=== PATIENT | female | born 1960 | race Asian ===

== ENCOUNTER 2018-11-12 10:41 | Day surgery (SDC) | payer OTHER ==
[~2018-11-12 10:41] MED LIST: Buffered Lidocaine 1% SYRIN* 1 ML/SYRINGE INTRADERM ONE; Dexamethasone TAB* 4 MG PO ONE; DiMENhydriNATE IV* 50 MG/ML VIAL IV PUSH PRN; Famotidine IV* 10 MG/ML 2 ML (20 mg) IV ONE; Lactated Ringers 1000 ML Bag* 1,000 ML IV SCH; Morphine 4 MG/ML VIAL (1 ml) 4 MG/ML VIAL IV PRN; Naloxone* 0.4 MG/ML 1 ML VIAL IV PRN; Ondansetron TAB* 4 MG PO ONE; PROCHLORPERAZINE INJ 5 MG/ML 2 ML VIAL IV PRN; Scopolamine 1.5 mg* PATCH TRANSDERM ONE; fentaNYL* 50 MCG/ML 2 ML VIAL (100 MCG VIAL) IV PRN; oxyCODONE/Acetamin 5/325 MG* TAB PO PRN
[2018-11-12] MEDS ORDERED: Dexamethasone TAB* 4 MG ONE (10:54)
[2018-11-12] MEDS ORDERED: Ondansetron ODT TAB* 4 MG ONE (10:54)
[2018-11-12] MEDS ORDERED: Famotidine IV* 10 MG/ML 2 ML (20 mg) ONE (10:55)
[2018-11-12] MEDS ORDERED: Buffered Lidocaine 1% SYRIN* 1 ML/SYRINGE INTRADERM ONE (10:55)
[2018-11-12] MEDS ORDERED: Scopolamine 1.5 mg* PATCH ONE (10:55)
[2018-11-12] MEDS ORDERED: fentaNYL* 50 MCG/ML 2 ML VIAL (100 MCG VIAL) ONE (11:05)
[2018-11-12] MEDS ORDERED: KETAMINE HCL* 50 MG/ML 10 ML VIAL ONE (11:05)
[2018-11-12] MEDS ORDERED: Midazolam* 1 MG/ML 5 ML VIAL (5 MG) ONE (11:06)
[2018-11-12] MEDS ORDERED: Gelfoam 12-7 ADSORBABL SPONGE* 1 EA SPONGE ONE (12:08)
[2018-11-12] MEDS ORDERED: Oxymetazoline 0.05% NASAL SPR* 15 ML BTL ONE (12:09)
[2018-11-12] MEDS ORDERED: Lidocaine 2% EPI 1:200000 MPF*10-20 ML VIAL ONE (12:09)
[2018-11-12] MEDS ORDERED: Triamcinolone Acetonide* 40 MG/ML 1 ML VIAL ONE (12:09)
[2018-11-12] MEDS ORDERED: Propofol* 10 MG/ML 20 ML BTL ONE (12:27)
[2018-11-12] MEDS ORDERED: Lidocaine 2% PF * 5 ML VIAL ONE (12:28)
[2018-11-12] MEDS ORDERED: hydrALAZINE IV* 20 MG/ML VIAL ONE ×2 (12:28→13:40)
[2018-11-12] MEDS ORDERED: PROCHLORPERAZINE INJ 5 MG/ML 2 ML VIAL ONE (12:30)
[2018-11-12] MEDS ORDERED: Metoprolol Tartrate IV* 1 MG/ML 5 ML VIAL ONE (13:40)
[2018-11-12 15:02] VITALS: BP 126/81
--- NOTE | 2018-11-12 16:33 | OP ---
DATE OF OPERATION: 11/12/18 - [facility] DATE OF : 60 SURGEON: Jerome Romero MD PRE-OP DIAGNOSES: 1. Chronic recurring sinusitis. 2. Nasal dyspnea. POST-OP DIAGNOSES: 1. Chronic recurring sinusitis. 2. Nasal dyspnea. OPERATIVE PROCEDURE: Bilateral videoendoscopic maxillary antrostomy, bilateral anterior ethmoidectomy. BRIEF HISTORY: This is a 58-year-old female with longstanding history of chronic sinus symptoms, previously apparent with sinus surgery, but she fairly had atelectatic sinuses and the CT scan shows quite significant adhesive changes. DESCRIPTION OF PROCEDURE: The patient was taken to the operating room, general anesthetic was given, the patient was intubated with LMA. Nose was decongested with Afrin placed pledgets. 2% lidocaine with epinephrine was infiltrated in the turbinate region on both sides, the uncinate area on both sides, and the ethmoidal bulla area on both sides. We turned our attention to the left side. The previously examined area showed that there had been previous surgery done, but there was significant synechia between the residual uncinate and the antral opening. The uncinate was carefully peeled off of the inferior orbital wall and fontanelle and then the antrum was entered and enlarged. Again, it was quite stenotic. Then, we turned our attention to the ethmoid resecting out the residual bulla and coursing laterally towards the lamina papyracea posteriorly towards the skull base and ground lamella and superior into the nasal frontal duct area, very sclerotic bone. The area was then packed with Gelfilm and Gelfoam. We turned our attention to the right side. Here, the antrostomy was closed because of adhesive changes of the residual either scar tissue or uncinate bone. This was again resected out carefully and the antrum was enlarged. The ethmoidal bulla was extremely stenotic and firm and carefully entered resecting some of the bulla cells towards the lamina papyracea and as much as I could safely into the nasal frontal duct area. After this was done, the area was packed with Gelfilm and Gelfoam. The patient was then awakened and sent to the recovery room in stable condition. Instrument and sponge counts were correct. Blood loss was minimal. [id number]/[facility] #: [id number] [facility]
[2018-11-15] MEDS ORDERED: Scopolamine PATCH Remove* 1 NOTE MISC PATCH OFF ONE (06:00)
== END 2018-11-12 15:05 | disposition home or self-care (01) ==
LOC: OR 10:41
PROVIDERS: ATTEND Otolaryngology
DX: J32.8 Other chronic sinusitis (principal); R51 Headache; J34.3 Hypertrophy of nasal turbinates
CPT/HCPCS: 88305; 88311; A9270-GY; J0360; J0780; J2250; J2704; J3010; J3301; J3490; J8540

== ENCOUNTER 2019-02-20 11:04 | Day surgery (SDC) | payer OTHER ==
--- NOTE | 2019-02-19 12:26 | HP ---
AMENDED REPORT NOW INCLUDES DESIGNATED COSIGNER PREOPERATIVE HISTORY AND PHYSICAL: DATE OF SURGERY/ADMISSION: 02/20/19 DATE OF OFFICE VISIT/ENCOUNTER: 02/18/19 ATTENDING SURGEON: Yennifer Herrera MD.* (DICTATED BY HAYDEE OSPINA) PROCEDURE: Left long finger excision of mass. HISTORY OF PRESENT ILLNESS: This is a 58-year-old female who complains of a lump on the dorsal aspect of her left middle finger. It has been bothering her for several weeks. She did not recall any specific injury. It hurts when she grasps on to things. She does not believe she has any foreign body in her finger. However, she is concerned about the lump and it is bothersome enough to her that she would like to have it removed. PAST MEDICAL HISTORY: 1. Chronic back/neck pain. 2. Questionable history of rheumatoid arthritis. 3. Rheumatic fever as a child. PAST SURGICAL HISTORY: 1. Back surgery 10 years ago. 2. Neck surgery 9 years ago. 3. Carpal tunnel release on the right x2 and on the left x1. 4. Appendectomy. 5. Hysterectomy. 6. Sinus surgery. CURRENT MEDICATIONS: 1. Advil p.r.n. 2. Fluticasone propionate 50 mcg/act. 3. Gabapentin 300 mg daily. 4. Tizanidine HCl 4 mg daily. 5. Tylenol p.r.n. ALLERGIES: No known drug allergies. FAMILY MEDICAL HISTORY: Rheumatic arthritis, heart disease, hypertension. SOCIAL HISTORY: The patient lives at home with her father. She is not currently working. She denies tobacco use and recreational drug use. She drinks alcohol on occasion. REVIEW OF SYSTEMS: Positive for constipation, chronic back/neck pain, weakness , fatigue, anxiety/depression. Otherwise negative for general, cephalic, cardiovascular, respiratory, GI, , musculoskeletal, integumentary, endocrine, hematologic and neurologic symptoms. Infectious Disease: Negative for MRSA, hepatitis C, HIV. PHYSICAL EXAMINATION GENERAL: Well-developed, well-nourished, 58-year-old female, in no acute distress. VITAL SIGNS: Height 5 feet 2-3/4 inches, weight 115 pounds. Pulse rate 64, blood pressure 124/84. HEENT: Normocephalic, atraumatic. Pupils are equal, round, and reactive to light and accommodation. Extraocular movements are intact. Throat is clear. NECK: Supple. No palpable lymph nodes. PULMONARY: Lungs are clear to auscultation bilaterally. No wheezes, rales, or rhonchi. CARDIOVASCULAR: Regular rate and rhythm, S1, S2. No murmurs, rubs, or gallops. No edema. ABDOMEN: Positive bowel sounds, soft, nontender. NEUROLOGIC: Alert and oriented x3. Cranial nerves II through XII are intact. Sensation is intact to light touch. MUSCULOSKELETAL: On exam of her left hand, there is a cystic mass on the dorsal aspect of her left middle finger overlying the middle phalanx. It is tender to palpation. It measures about 1 x 0.5 cm. SKIN: Intact. There is no erythema. There is a negative Tinel's over the lump. She has no restrictions of motion in the finger. DIAGNOSTIC STUDIES/LAB DATA: Imaging studies: X-rays; AP, lateral, and oblique of the left middle finger appeared normal. IMPRESSION: Left middle finger soft tissue mass. PLAN: The patient is scheduled to undergo left long finger excision of mass with Dr. Herrera on 02/20/19. She will return to the office 10 days postop for followup and suture removal. A prescription for Ultracet was e-scribed to the patient's pharmacy for postoperative pain management. HAYDEE OSPINA [id number]/[facility] #: [id number] MTDD
[~2019-02-20 11:04] MED LIST changes: -Dexamethasone TAB* 4 MG PO ONE; -DiMENhydriNATE IV* 50 MG/ML VIAL IV PUSH PRN; -Famotidine IV* 10 MG/ML 2 ML (20 mg) IV ONE; +Lidocaine 1% INJ* 10 MG/ML 30 ML SDV ONE; -Morphine 4 MG/ML VIAL (1 ml) 4 MG/ML VIAL IV PRN; -Naloxone* 0.4 MG/ML 1 ML VIAL IV PRN; -Ondansetron TAB* 4 MG PO ONE; -PROCHLORPERAZINE INJ 5 MG/ML 2 ML VIAL IV PRN; -Scopolamine 1.5 mg* PATCH TRANSDERM ONE; -fentaNYL* 50 MCG/ML 2 ML VIAL (100 MCG VIAL) IV PRN; -oxyCODONE/Acetamin 5/325 MG* TAB PO PRN
[2019-02-20] MEDS ORDERED: Famotidine IV* 10 MG/ML 2 ML (20 mg) ONE (11:10)
[2019-02-20] MEDS ORDERED: Midazolam* 1 MG/ML 5 ML VIAL (5 MG) ONE (12:14)
[2019-02-20] MEDS ORDERED: Lidocaine 1% INJ* 10 MG/ML 30 ML SDV ONE (13:01)
[2019-02-20] MEDS ORDERED: Ketorolac INJ* 30 MG/ML 1 ML VIAL ONE (13:32)
[2019-02-20] MEDS ORDERED: Propofol* 10 MG/ML 20 ML BTL ONE (13:32)
[2019-02-20] MEDS ORDERED: Ondansetron INJ* 2 MG/ML VIAL ONE (13:32)
[2019-02-20] MEDS ORDERED: Lidocaine 2% PF * 5 ML VIAL ONE (13:32)
[2019-02-20] MEDS ORDERED: Ondansetron INJ* 2 MG/ML VIAL IV PRN (13:45)
[2019-02-20] MEDS ORDERED: Acetaminophen TAB* 325 MG PO PRN (13:45)
[2019-02-20 14:26] VITALS: BP 121/79
--- NOTE | 2019-02-20 15:08 | OP ---
DATE OF OPERATION: 02/20/19 [facility] DATE OF : 60 SURGEON: Yennifer Herrera MD. PODIATRIC PHYSICIAN: HAYDEE Sanchez. ANESTHESIA: Local MAC. PRE-OP DIAGNOSIS: Left long finger mass. POST-OP DIAGNOSIS: Left long finger mass. OPERATIVE PROCEDURE: Removal of left long finger mass. ESTIMATED BLOOD LOSS: Zero. TOURNIQUET TIME: Approximately 10 minutes. INDICATION FOR PROCEDURE: Lorenzo Vale is a 58-year-old woman who has a painful mass on the dorsal aspect of her left long finger. She presents for removal. DESCRIPTION OF PROCEDURE: The patient was brought to the operating room, was given a sedation anesthetic and a digital block with 10 cc of 1% plain lidocaine. The skin of her left hand and forearm was prepped and draped in the usual sterile fashion. A Tourni-Cot was placed on the left long finger and then a longitudinal incision was made centered over the mass, dissected bluntly through subcutaneous tissue. The mass appeared to a ganglion cyst emanating from the extensor tendon. It was removed in its entirety and sent for pathology. The wound was irrigated and the skin edges were reapproximated with 4-0 nylon suture. The wound was dressed with Xeroform, 4x4, Kerlix, and Coban. The patient tolerated the procedure well and was brought to the recovery room in good condition. [id number]/[facility] #: [id number] MTDD
== END 2019-02-20 14:24 | disposition home or self-care (01) ==
LOC: OREAST 11:04
PROVIDERS: ATTEND Orthopaedic Surgery
DX: M67.442 Ganglion, left hand (principal); M54.2 Cervicalgia; M54.9 Dorsalgia, unspecified; F41.9 Anxiety disorder, unspecified
CPT/HCPCS: 88304; J1885; J2250; J2405; J2704

== ENCOUNTER 2019-04-07 01:34 | Emergency (ER) | payer OTHER ==
--- OUTSIDE RECORDS SUMMARY | 2019-04-07 01:41 | XMS REPORT | Continuity of Care Document ---
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 Onset: 02/06/2016 Low back pain Brenda Chapman M.D. Onset: 02/06/2016 Social History Type Date Description Comments Sex Unknown ETOH Use Currently consumes alcohol 2/week Tobacco Use Start: Unknown Patient has never smoked Smoking Status Reviewed: 02/25/19 Patient has never smoked Exercise Type/Frequency Exercises sporadically Allergies, Adverse Reactions, Alerts Description No Known Drug Allergies Medications Active Medications SIG Qnty Indications Ordering Provider Date Tramadol 1 tab by mouth 15tabs Yennifer Herrera, 02/19/2019 Hydrochloride/Acetami every 4-6 hours M.D. nophen as needed pain 37.5-325mg Tablets Gabapentin Cannariato, 300mg Lashell Moody MD Capsules Tizanidine HCL Cannariato, 4mg Lashell Moody MD Tablets Fluticasone Cannariato, Propionate Lashell Moody MD 50mcg/Act Suspension Tylenol Unknown Advil Unknown Immunizations Description No Information Available Vital Signs Date Vital Result Comment 02/25/2019 2:31pm Height 62 inches 5'2" Weight 115.00 lb Heart Rate 64 /min Body Temperature 99.2 F Pain Level 1 BMI (Body Mass Index) 21.0 kg/m2 02/18/2019 11:32am Height 62.75 inches 5'2.75" Weight 115.00 lb Heart Rate 64 /min BP Systolic 124 mmHg BP Diastolic 84 mmHg Pain Level 6 BMI (Body Mass Index) 20.5 kg/m2 Results Test Date Facility Test Result H/L Range Note Laboratory test 02/20/2019 [facility] Surgical SEE RESULT 1 , [address] [place] [address] [phone] Laboratory test 11/12/2018 [facility] Surgical SEE RESULT [address] [place] [address] [phone] 1 [id number] 2 SEE RESULT BELOW Name: LORENZO DURHAM : [address]: Yennifer Herrera MD Acct: [id number] Unit: [id number] AGE: 58 Location: [facility] Re02/20/19 SEX: F Status: DESHAWN JUAREZ SPEC: [id number] CLOTILDE: 02/20/[address] [facility] [address]: Yennifer Herrera MD REQ: [id number] RECD: 02/20/19 STATUS: SOUT _ ORDERED: LEVEL 3 COMMENTS: [id number] FINAL DIAGNOSIS Left middle finger, excision: -- Ganglion cyst. PRE-OPERATIVE DIAGNOSIS Mass left middle finger GROSS DESCRIPTION The specimen is received in formalin labeled, Mass Left Middle Finger, and consists of a 0.9 x 0.6 x 0.2 cm betancourt-pond irregular rubbery fibrous tissue fragment with scant adherent yellow fat. The cut surface is cystic. The specimen is serially sectioned and entirely submitted in one cassette. Signed by and Reported on: Sasha Maya MD 02/24/19 1257 END OF REPORT DEPARTMENT OF PATHOLOGY, [address] [place] [address] Jered Piper M.D. Director [facility] # [id number] 3 SEE RESULT BELOW Name: DWAYNE DURHAM : [address]: Yuriy Romero MD Acct: [id number] Unit: [id number] AGE: 58 Location: OR Re11/12/18 SEX: F Status: DEP SDC SPEC: [id number] CLOTILDE: 11/12/18- SUBM DR: Yuriy Romero MD REQ: [id number] RECD: 11/12/18 STATUS: SOUT _ ORDERED: , LEVEL 4/ FINAL DIAGNOSIS 1. Left sinus contents, curettage: -- Chronic sinusitis. 2. Right sinus contents, curettage: -- Chronic sinusitis. PRE-OPERATIVE DIAGNOSIS Chronic sinusitis GROSS DESCRIPTION 1. The specimen is received in formalin labeled, Left Sinus Contents, and consists of a 2.1 x 2.0 x 0.4 cm aggregate of betancourt-white irregular soft tissue fragments admixed with a small amount of bone and scant red-brown blood clot. Entirely submitted, one cassette following decalcification. 2. The specimen is received in formalin labeled, Right Sinus Contents, and consists of a 1.3 x 1.0 x 0.4 cm aggregate of betancourt-pond irregular soft tissue fragments admixed with scant bone and red-brown blood clot. Entirely submitted, one cassette following decalcification. Signed by and Reported on: Sasha Maya MD 11/14/18 1529 END OF REPORT DEPARTMENT OF PATHOLOGY, [address] [place] [address] Jered Piper M.D. Director [facility] # [id number] Procedures Description No Information Available Medical Devices Description No Information Available Encounters Type Date Location Provider Dx Diagnosis Office Visit 02/18/2019 [facility] Yennifer Herrera, G56.03 Carpal tunnel 11:[facility] Schultz syndrome, bilateral upper limbs R22.32 Localized swelling, mass and lump, left upper limb Assessments Date Code Description Provider 02/18/2019 G56.03 Carpal tunnel syndrome, bilateral upper limbs Yennifer Herrera M.D. 02/18/2019 R22.32 Localized swelling, mass and lump, left upper Yennifer Herrera M.D. limb Plan of Treatment Future Appointment(s):03/04/2019 1:00 pm - Yennifer Herrera M.D. at [facility] Functional Status Description No Information Available Mental Status Description No Information Available Referrals Description No Information Available
--- OUTSIDE RECORDS SUMMARY | 2019-04-07 01:41 | XMS REPORT | Continuity of Care Document ---
:1960 External Reference #:[id number] Author Name Socrates Wilkins DO, MPH Address [address] [place] [address], [address] [place] [address] Care Team Providers Name Role Phone Lashell Colon J, MD - Family Care Team Information Brand Representative [phone] Medicine Problems Active Problems Provider Date Radiculopathy, cervical region WilkinsCarol cooperph, DO, MPH Onset: 03/26/2019 Lumbar spine ankylosis Wilkins, Socrates, DO, MPH Onset: 03/26/2019 Cervical spine ankylosis Wilkins, Socrates, DO, MPH Onset: 03/26/2019 Dietary management surveillance WilkinsCarol cooperph, DO, MPH Onset: 03/26/2019 Counseling WilkinsCarol cooperph, DO, MPH Onset: 03/26/2019 Degenerative joint disease involving multiple Wilkins, Socrates, DO, MPH Onset: joints Long-term current use of opiate analgesic Wilkins, Socrates, DO, MPH Onset: 2018 drug Lumbar radiculopathy Wilkins, Socrates, DO, MPH Onset: 03/26/2019 Low back pain Wilkins, Socrates, DO, MPH Onset: 03/26/2019 Neck pain Wilkins, Socrates, DO, MPH Onset: 03/26/2019 Chronic postoperative pain Wilkins, Socrates, DO, MPH Onset: 03/26/2019 Headache Wilkins, Socrates, DO, MPH Onset: 03/26/2019 Asthma without status asthmaticus Wilkins, Socrates, DO, MPH Onset: 03/26/2019 Gastroesophageal reflux disease Wilkins, Socrates, DO, MPH Onset: 03/26/2019 Rheumatoid arthritis Wilkins, Socrates, DO, MPH Onset: 03/26/2019 Social History Type Date Description Comments Sex Unknown ETOH Use 2 Beer a Week Tobacco Use Start: Unknown End: Unknown Patient is a former smoker Recreational Drug Use Denies Drug Use Smoking Status Reviewed: 03/26/19 Patient is a former smoker Allergies, Adverse Reactions, Alerts Active Allergies Reaction Severity Comments Date Shellfish-Derived Products Anaphylaxis 03/26/2019 Medications Active Medications SIG Qnty Indications Ordering Provider Date Oxycodone HCL si by mouth 30tabs Socrates Wilkins, DO, 03/26/2019 5mg every 8 to 12 MPH Tablets hours as directed chronic pain patient Advil PM 2 by mouth at Unknown 200-25mg night Capsules Tylenol 8 Hour Unknown Arthritis Pain 650mg Tablets ER Fluticasone Unknown Propionate 50mcg/Act Suspension Gabapentin si by mouth Unknown 300mg twice a day as Capsules directed Tizanidine HCL si by mouth Unknown 4mg daily as directed Tablets Immunizations Description No Information Available Vital Signs Date Vital Result Comment 03/26/2019 2:05pm BP Systolic 130 mmHg BP Diastolic 82 mmHg Heart Rate 84 /min Respiratory Rate 20 /min Height 62 inches 5'2" Weight 117.00 lb Pain Level 7 Pain at this time. 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, lumbar region Wilkins, Socrates, DO, MPH 03/26/2019 M54.16 Radiculopathy, lumbar region Wilkins, Socrates, DO, MPH 03/26/2019 M54.12 Radiculopathy, cervical region Wilkins, Socrates, DO, MPH 03/26/2019 K21.9 Gastro-esophageal reflux disease without Socrates Wilkins DO MPH esophagitis 03/26/2019 J45.998 Other asthma Socrates Wilkins DO MPH 03/26/2019 R51 Headache Socrates Wilkins DO MPH 03/26/2019 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 Symptoms and complaints discussed and reviewed today. No significant changes in physical findings. Continue current medical pain management. Chronic. Symptoms and complaints discussed and reviewed today. No significant changes in physical findings. Continue current medical pain management.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, cervical regionComments:Chronic Intractable Pain. Symptoms and complaints discussed and reviewed today. Begin trial of adequate and appropriate Opioid Pain Management as well as non-opioid treatment options - New Medications listed below.M54.2 CervicalgiaComments: Chronic Intractable Pain. Symptoms and complaints discussed and reviewed today. Begin trial of adequate and appropriate Opioid Pain Management as well as non- opioid treatment options - New Medications listed below.M54.5 Low back painComments:Chronic Intractable Pain. Symptoms and complaints discussed and reviewed today. Begin trial of adequate and appropriate Opioid Pain Management as well as non-opioid treatment options - New Medications listed below.M43.26 Fusion of spine, lumbar regionComments:Chronic Intractable Pain. Symptoms and complaints discussed and reviewed today. Begin trial of adequate and appropriate Opioid Pain Management as well as non-opioid treatment options - New Medications listed below.M54.16 Radiculopathy, lumbar regionComments: Chronic Intractable Pain. Symptoms and complaints discussed and reviewed today. Begin trial of adequate and appropriate Opioid Pain Management as well as non- opioid treatment options - New Medications listed below.M54.12 Radiculopathy, cervical regionComments:Chronic Intractable Pain. Symptoms and complaints discussed and reviewed today. Begin trial of adequate and appropriate Opioid Pain Management as well as non-opioid treatment options - New Medications listed below.K21.9 Gastro-esophageal reflux disease without esophagitisComments: Following as pertains to chronic pain medications particularly NSAIDS and Tylenol as well as any meds that effect the GI tract.J45.998 Other asthmaComments:Followed by PCP. Will follow as pertains to her pain management. Special care to protect respiratory drive. Will follow as pertains to pain management.R51 HeadacheComments:Chronic. Symptoms and complaints discussed and reviewed today. Patient is stable and comfortable with current medical therapy.Z79.891 [employer] customer service (current) use of opiate analgesicNew Labs: Urine Drug Screen, Ordered: 03/26/19Comments:Urine drug screen sample taken. Rapid Point of Care Cup was reviewed in office with patient. Will send out UDT Rapid to Quantitative lab for confirmation testing. Urine Drug Testing (UDT) was done today to monitor opiate use and to monitor possible use of illicit substances. I will discuss the results at the next appointment from the Quantitative lab.The following tests were ordered:6 AM, AMPH, MANNIE, JANELLE, BUP, CARIS, COCM, COT, ETG, FENT, MCSHSG, OPI, OXY, PCP, TAPEN, XTSY, ZOLP. A urine drug test (UDT) was ordered for this patient and collected on site today. Creatinine has been ordered as well for specimen validity, not for kidney function. Preliminary UDT results are not final and should not be used to determine patient care or plan of treatment. Initially a qualitative immunoassay screen will be done. Any inconsistent or positive findings will be further tested with a more comprehensive quantitative confirmation LCMS study. It is part of the treatment process of prescribing controlled substances and is considered standard of care.Z13.31 Encounter for screening for depressionComments:PHQ-9 Depression Screen administered today, results were Positive at this time. Followed by PCP. Will follow as pertains to their pain. Patient seems to be stable today. Reassurance and counseling. Patient seems to be stable today.Z71.89 Other specified counselingComments:New patient counseled in regards to office practice. They were educated about our answering services. What to do if they should have to visit the ER or have any adverse reactions to medications we prescribe. Patient understands that they have to fill their prescription at one pharmacy. If there is a change they must call us and let us know what new pharmacy they will be using. They understand and agree that they must present within 24 hours of a phone call for a random urine screen and a pill count. Patient understands that if the medication needs a prior authorization that it can take up to 72 hours to complete. Patient introduced to non - opioid pain management options.Z71.3 Dietary counseling and surveillanceComments:Regular, small, nutritious meals higher in protein encouraged spaced evenly throughout the day. Count calories. Keep a food log. Hydrate.AllNew Medication:Oxycodone HCL 5 mg - si by mouth every 8 to 12 hours as directed chronic pain patientComments:Chronic intractable pain - Begin trial of adequate and appropriate Opioid Pain Management - New Medications listed below; injection therapy, osteopathic manipulation, PT / modalities, and consults as needed to manage chronic pain.Non - opioid pain management discussed and options discussed.Side effects discussed; anticipatory guidance given. Patient clearly understand and agree with all medical treatments and suggestions. All medicines prescribed are adequate and appropriate for this patient's complaint of pain, medical history, physical, and personal goals.Goals of Treatment are to provide adequate and appropriate multidisciplinary medical pain management to increase/ maintain patient's quality of life and functionality while maintaining satisfactory side effect profile and minimizing shelter end-organ damage. Importance of regular nutrition throughout the day discussed.Activity as toleratedContinue with PCP Functional Status Description No Information Available Mental Status Description No Information Available Referrals Description No Information Available
--- OUTSIDE RECORDS SUMMARY | 2019-04-07 01:41 | XMS REPORT | Continuity of Care Document ---
:1960 External Reference #:[id number] Author Name Yennifer Herrera M.D. (transmitted by agent of provider Manuela Vela) Address [address] [place] [address] Care Team Providers Name Role Phone Lashell Colon MD - Care Team Information [employer] Techn[employer] Family Medicine Problems Active Problems Provider Date Neck pain Brenda Chapman M.D. Onset: 02/06/2016 Low back pain Brenda Chapman M.D. Onset: 02/06/2016 Social History Type Date Description Comments Sex Unknown ETOH Use Currently consumes alcohol 2/week Tobacco Use Start: Unknown Patient has never smoked Smoking Status Reviewed: 02/18/19 Patient has never smoked Exercise Type/Frequency Exercises sporadically Allergies, Adverse Reactions, Alerts Description No Known Drug Allergies Medications Active Medications SIG Qnty Indications Ordering Provider Date Gabapentin Lashell Colon 300mg Capsules MD [place] Tizanidine HCL Lashell Colon 4mg Tablets MD [place] Fluticasone Propionate Susannahariaevi, Lashell 50mcg/Act MD [place] Suspension Tylenol Unknown Advil Unknown Immunizations Description No Information Available Vital Signs Date Vital Result Comment 02/18/2019 11:32am Height 62.75 inches 5'2.75" Weight 115.00 lb Heart Rate 64 /min BP Systolic 124 mmHg BP Diastolic 84 mmHg Pain Level 6 BMI (Body Mass Index) 20.5 kg/m2 03/08/2016 1:59pm Height 63 inches 5'3" Weight 140.12 lb Heart Rate 64 /min BP Systolic Sitting 126 mmHg BP Diastolic Sitting 76 mmHg Respiratory Rate 14 /min Body Temperature 97.2 F Pain Level 3 BMI (Body Mass Index) 24.8 kg/m2 Results Test Date Facility Test Result H/L Range Note Laboratory test 11/12/2018 [facility] Surgical SEE RESULT [address] [place] [address] [phone] 1 SEE RESULT BELOW Name: DWAYNE DURHAM : [address]: Yuriy Romero MD Acct: [id number] Unit: [id number] AGE: 58 Location: OR Re11/12/18 SEX: F Status: DESHAWN FRITZ SPEC: [id number] CLOTILDE: 11/12/18- SUBM DR: Yuriy Romero MD REQ: [id number] RECD: 11/12/183 STATUS: SOUT _ ORDERED: , LEVEL 4/2 FINAL DIAGNOSIS 1. Left sinus contents, curettage: [...] 1529 END OF REPORT DEPARTMENT OF PATHOLOGY, [address] [place] [address] Jered Piper M.D. Director [facility] # [id number] Procedures Description No Information Available Medical Devices Description No Information Available Encounters Description No Information Available Assessments Date Code Description Provider 02/18/2019 G56.01 Carpal tunnel syndrome, right upper limb Yennifer Herrera M.D. 02/18/2019 G56.02 Carpal tunnel syndrome, left upper limb Yennifer Herrera M.D. 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 and other soft tissue Plan of Treatment Future Appointment(s):03/04/2019 1:00 pm - Yennifer Herrera M.D. at [facility]02/20/2019 1:00 pm - Yennifer Herrera M.D. at [facility] Functional Status Description No Information Available Mental Status Description No Information Available Referrals Description No Information Available
--- OUTSIDE RECORDS SUMMARY | 2019-04-07 01:41 | XMS REPORT | Summary of Care ---
:1960 Author Organization [facility] Address [address] [place] [address] Care Team Providers Name Role Phone Lashell Colon MD Primary Care Provider Reason for Referral Refer to Department Only (Routine) Status Reason Specialty Diagnoses / Referred By Referred To Procedures Contact Contact Pending Review Diagnoses Contracture of joint of right hand Ganglion cyst of flexor tendon sheath of finger of left hand Lashell Colon MD [address] [place] [address] Reason for Visit Reason Comments Finger Pain bump on Lt middle finger x 2weeks Encounter Details Date Type Department Care Team Description 02/13/2019 Office Visit [facility] Isaiah, Ganglion cyst of flexor tendon sheath of finger of left hand (Primary Dx); Practice Lashell Serrano MD Screening mammogram, encounter for; [address] Contracture of joint of right hand; [place] [address] Cervical radiculopathy [phone] Allergies Active Allergy Reactions Severity Noted Date Comments Shellfish Allergy Anaphylaxis 11/20/2017 documented as of this encounter (statuses as of 02/13/2019) Medications Medication Sig Dispensed Refills Start Date End Date Status fluticasone SPRAY 1 SPRAY IN 1 Bottle 5 04/14/2018 Active (FLONASE) 50 EACH NOSTRIL MCG/ACT Nasal TWICE DAILY SuspensionIndicat ions: ETD (Eustachian tube dysfunction), bilateral gabapentin TAKE ONE CAPSULE 60 Cap 1 01/19/2019 Active (NEURONTIN) 300 BY MOUTH TWICE A MG Oral DAY CapIndications: Rheumatoid arthritis, involving unspecified site, unspecified rheumatoid factor presence (HCC), Muscle spasm tizanidine TAKE 1 TABLET BY 30 Tab 1 01/19/2019 Active (ZANAFLEX) 4 MG MOUTH EVERY DAY Oral NEEDED FOR TabIndications: MUSCLE SPASM Muscle spasm Lansoprazole Take 30 mg by 30 Cap 5 02/15/2016 02/14/20 Discontinued (PREVACID) 30 MG mouth DAILY. 19 (Patient stopped Oral CAPSULE the medication) DELAYED RELEASE sertraline Take 1 Tab by 30 Tab 5 09/04/2017 02/14/20 Discontinued (ZOLOFT) 50 MG mouth DAILY. 19 (Patient stopped Oral the medication) TabIndications: CHAZ (generalized anxiety disorder) meloxicam (MOBIC) Take 1 Tab by 90 Tab 1 10/28/2017 02/14/20 Discontinued 7.5 MG Oral Tab mouth DAILY 19 (Patient stopped NEEDED the medication) (arthritis pain). Discontinue Celebrex. olanzapine Take 2.5 mg by 0 02/14/20 Discontinued (ZYPREXA) 2.5 MG mouth EVERY 19 (Patient stopped Oral Tab BEDTIME. the medication) clonazePAM Take 0.5 mg by 0 02/14/20 Discontinued (KLONOPIN) 0.5 MG mouth TWICE 19 (Patient stopped Oral Tab DAILY. the medication) ondansetron Take 4 mg by 18 Tab 0 12/19/2017 02/14/20 Discontinued (ZOFRAN) 4 MG mouth EVERY 19 (Patient stopped Oral EIGHT HOURS the medication) TabIndications: NEEDED for Nausea nausea. documented as of this encounter (statuses as of 02/13/2019) Active Problems Problem Noted Date Cervical radiculopathy 09/19/2017 Rheumatoid arthritis GERD (gastroesophageal reflux disease) documented as of this encounter (statuses as of 02/13/2019) Immunizations Name Administration Dates Next Due Influenza (IM) Preservative Free 06/19/2016 TDAP Vaccine 02/03/2016 documented as of this encounter Social History Tobacco Use Types Packs/Day Years Used Date Former Smoker Cigarettes Smokeless Tobacco: Never Used Comments: only a few cig in high school Alcohol Use Drinks/Week oz/Week Comments Yes 2 Cans of beer 2.0 Sex Assigned at Date Recorded Not on file Job Start Date Occupation Industry Not on file Not on file Not on file Travel History Travel Start Travel End No recent travel history available. documented as of this encounter Last Filed Vital Signs Vital Sign Reading Time Taken Comments Blood Pressure 120/80 02/13/2019 7:08 AM EDT Pulse 71 02/13/2019 7:08 AM EDT Temperature - - Respiratory Rate - - Oxygen Saturation 98% 02/13/2019 7:08 AM EDT Inhaled Oxygen Concentration - - Weight 51.7 kg (114 lb) 02/13/2019 7:08 AM EDT Height 157.5 cm (5' 2") 02/13/2019 7:08 AM EDT Body Mass Index 20.85 02/13/2019 7:08 AM EDT documented in this encounter Patient Instructions Patient InstructionsLashell Colon MD - 02/13/2019 7:00 AM EDTI referred you to hand surgery for your finger cyst and contractures in your right palm. I ordered your mammogram. Keep doing neck exercises documented in this encounter Progress Notes Lashell Colon MD - 02/13/2019 7:00 AM EDT Nursing Notes: Sasha Johnson LPN 02/13/2019 7:16 AM Signed Chief Complaint Patient presents with Finger Pain bump on Lt middle finger x 2weeks Depression Screening Over the last 2 weeks, have you been feeling down, depressed, anxious, or hopeless?: Several days Over the past 2 weeks, have you felt little interest or pleasure in doing things ?: Several days Side Stitcher: Dr Bebo RA ENT: [facility], Dr Romero Pain: Dr Murillo Neurosurgery: Dr Dodd 12/01/18 for cervical radiculopathy, is in Physical Therapy Psychiatrist: Dr Espinal Chief Complaint: Lorenzo Durham is a 58-y.o. female who presents for a tender lump on her finger History of Present Illness/ROS: She has a painful lump left 3rd finger, just proximal to DIP x 10 days, no trauma She has a several small contractures right palm, fingers are not triggering however. Review of Systems - General ROS: negative for - chills or fever Psychological ROS: negative for - anxiety or depression Respiratory ROS: no cough, shortness of breath, or wheezing Cardiovascular ROS: negative for - chest pain or edema Past Medical History: Diagnosis Date Arthritis Asthma mild, controlled GERD (gastroesophageal reflux disease) Postmenopausal Rheumatic fever treated with penicillin for a number of years Rheumatoid arthritis (HCC) Past Surgical History: Procedure Laterality Date CARPAL TUNNEL RELEASE Bilateral LUMBAR SPINAL FUSION 2005 L4-L5 about 2006 [place] ANESTH,NOSE,SINUS SURGERY 11/06/2018 [place] APPENDECTOMY [place] SINUS SURGERY PROC UNLISTED 09/2018 Dr Ellison [place] TOTAL ABDOM HYSTERECTOMY UNLISTED PROCEDURE,MUSCULOSKELE 2007 cervical spine surgery, rods, stablization Current Outpatient Medications: fluticasone (FLONASE) 50 MCG/ACT Nasal Suspension, SPRAY 1 SPRAY IN EACH NOSTRIL TWICE DAILY, Disp: 1 Bottle, Rfl: 5 gabapentin (NEURONTIN) 300 MG Oral Cap, TAKE ONE CAPSULE BY MOUTH TWICE A DAY, Disp: 60 Cap,Rfl: 1 tizanidine (ZANAFLEX) 4 MG Oral Tab, TAKE 1 TABLET BY MOUTH EVERY DAY NEEDED FOR MUSCLE SPASM, Disp: 30 Tab, Rfl: 1 Allergies Allergen Reactions Shellfish Allergy Anaphylaxis Social History Socioeconomic History Marital status: Spouse name: Not on file Number of children: Not on file Years of education: Not on file Highest education level: Not on file Occupational History Not on file Social Needs Financial resource strain: Not on file Food insecurity: Worry: Not on file Inability: Not on file Transportation needs: Medical: Not on file Non-medical: Not on file Tobacco Use Smoking status: Former Smoker Types: Cigarettes Smokeless tobacco: Never Used Tobacco comment: only a few cig in high school Substance and Sexual Activity Alcohol use: Yes Alcohol/week: 2.0 standard drinks Types: 2 Cans of beer per week Drug use: No Sexual activity: Not Currently Lifestyle Physical activity: Days per week: Not on file Minutes per session: Not on file Stress: Not on file Relationships Social connections: Talks on phone: Not on file Gets together: Not on file Attends scientologist service: Not on file Active member of club or organization: Not on file Attends meetings of clubs or organizations: Not on file Relationship status: Not on file Intimate partner violence: Fear of current or ex partner: Not on file Emotionally abused: Not on file Physically abused: Not on file Forced sexual activity: Not on file Other Topics Concern Back Care Not Asked Bike Helmet Not Asked Blood Transfusions Not Asked Caffeine Concern Not Asked Exercise Yes Hobby Hazards Not Asked International Travel Not Asked Service Not Asked Occupational Exposure Not Asked Seat Belt Not Asked Self-Exams Not Asked Sleep Concern Not Asked Special Diet No Stress Concern Not Asked Weight Concern Not Asked Social History Narrative Lives with her daughter. Pets: dogs Family History Problem Relation Age of Onset Heart Mother 50 [place] Kidney Disease Mother Thyroid Disease Mother Hypertension Mother Arthritis Mother No Known Problems Daughter Heart Disease Brother Heart Brother rheumatic valve disease Arthritis Sister PHYSICAL EXAMINATION: BP 120/80 (BP Location: Right arm, Patient Position: Sitting) | Pulse 71 | Ht 5' 2" (1.575 m) | Wt 114 lb (51.7 kg) | SpO2 98% | ? No | BMI 20.85 kg/m Physical Examination: General appearance - alert, well appearing, and in no distress Mental status - alert, oriented to person, place, and time, normal mood, behavior, speech, dress, motor activity, and thought processes Eyes - pupils equal, , sclera anicteric Neck - supple, no cervical or supraclavicular adenopathy, carotids upstroke normal bilaterally, no bruits, thyroid exam: thyroid is normal in size without nodules or tenderness, no neck masses palpated. Chest/Lungs - clear to auscultation, no wheezes, rales or rhonchi, symmetric air entry, good aeration Heart - normal rate, regular rhythm, normal S1, S2, no murmurs, rubs, clicks or gallops Abdomen - soft, non tender on palpation, nondistended, no masses or hepatosplenomegaly, bowel soundsnormal, normal to percussion, no guarding or rebound. No costervertebral angle tenderness Neurological - alert, oriented, normal speech, no gross focal findings or movement disorder noted Extremities - dorsalis pedis pulses normal, no pedal edema, no clubbing or cyanosis Left hand: Tender cyst just proximal to her left 3rd finger DIP joint Right hand: 2 contractures noted in the palm ASSESSMENT/PLAN: ICD-9-CM ICD-10-CM 1. Ganglion cyst of flexor tendon sheath of finger of left hand 727.42 M67.442 REFER TO HAND SURGERY 2. Screening mammogram, encounter for V76.12 Z12.31 MAMMO SCREENING TOMOSYNTHESIS BILATERAL 3. Contracture of joint of right hand 718.44 M24.541 REFER TO HAND SURGERY 4. Cervical radiculopathy 723.4 M54.12 Health Maintenence reviewed, she agree to a mammogram Refer to hand surgery in [place] If neck pain continues refer to pain clinic. Author: Lashell Colon MD 02/13/2019 07:34 documented in this encounter Plan of Treatment Name Type Priority Associated Diagnoses Order Schedule MAMMO SCREENING Imaging Routine Screening mammogram, Expected: TOMOSYNTHESIS BILATERAL encounter for 02/13/2019, Expires: 05/13/2020 Name Type Priority Associated Diagnoses Order Schedule REFER TO HAND SURGERY Referral Routine Contracture of joint of Expected: , right hand Expires: 02/14/2020 Ganglion cyst of flexor tendon sheath of finger of left hand Health Maintenance Due Date Last Done Comments ZOSTER IMMUNIZATION SERIES (1 of 2010 2) INFLUENZA VACCINE (#1) 2019 06/19/2016 DEPRESSION SCREENING 02/14/2020 02/13/2019 LIPID DISORDER SCREENING 08/07/2022 08/07/2017 COLONOSCOPY SCREENING 11/21/2027 11/20/2017 HPV IMMUNIZATION SERIES Aged Out No longer eligible based on patient's age to complete this topic MENINGOCOCCAL VACCINE IMM Aged Out No longer eligible based on patient's age to complete this topic PNEUMOCOCCAL 0-64 YRS Aged Out No longer eligible based on patient's age to complete this topic documented as of this encounter Results Not on filedocumented in this encounter Visit Diagnoses Diagnosis Ganglion cyst of flexor tendon sheath of finger of left hand - Primary Screening mammogram, encounter for Contracture of joint of right hand Contracture of hand joint Cervical radiculopathy Brachial neuritis or radiculitis nos documented in this encounter Guarantor Name Account Type Relation to Date of Phone Billing Patient Address Lorenzo Durham Personal/Family [address] (Home) [address] [place], [place] (Work) [address] documented as of this encounter
--- OUTSIDE RECORDS SUMMARY | 2019-04-07 01:41 | XMS REPORT | Summary of Care ---
:1960 Author Organization [facility] Address [address] [place] [address] Care Team Providers Name Role Phone Lashell Colon MD Primary Care Provider Reason for Referral Refer to Department Only (Routine) Status Reason Specialty Diagnoses / Referred By Referred To Procedures Contact Contact Pending Review PAIN CLINIC / Diagnoses Cervical radiculopathy [facility] [address] [place] [address] Scheduling Instructions To refer a patient to the Interventional Pain Clinic please call Please have the following ready: -Symptoms of the patient being referred -Recent films if available, NOT REQUIRED! -Known prior treatments Please be aware that we do not do medical management. Reason for Visit Reason Comments Neck Pain Pt c/o chronic posterior neck pain. Would like referral to ortho. Encounter Details Date Type Department Care Team Description 02/23/2019 Office Visit [facility], Cervical radiculopathy ( Primary Dx); Practice [facility] Adjustment disorder, unspecified type [address] [facility] [address] [place], [place] [id number] [place] [address] [phone] Allergies Active Allergy Reactions Severity Noted Date Comments Shellfish Allergy Anaphylaxis 11/20/2017 documented as of this encounter (statuses as of 02/23/2019) Medications Medication Sig Dispensed Refills Start Date End Date Status fluticasone (FLONASE) SPRAY 1 SPRAY IN 1 Bottle 5 04/14/2018 Active 50 MCG/ACT Nasal EACH NOSTRIL SuspensionIndications: TWICE DAILY ETD (Eustachian tube dysfunction), bilateral gabapentin (NEURONTIN) TAKE ONE CAPSULE 60 Cap 1 01/19/2019 Active 300 MG Oral BY MOUTH TWICE A CapIndications: DAY Rheumatoid arthritis, involving unspecified site, unspecified rheumatoid factor presence (HCC), Muscle spasm tizanidine (ZANAFLEX) 4 TAKE 1 TABLET BY 30 Tab 1 01/19/2019 Active MG Oral TabIndications: MOUTH EVERY DAY Muscle spasm NEEDED FOR MUSCLE SPASM Acetaminophen (TYLENOL Take 400 mg by 0 Active ARTHRITIS PAIN PO) mouth NEEDED. Ibuprofen-diphenhydrAMI Take 2 Tabs by 0 Active NE HCl (ADVIL PM) mouth EVERY 200-25 MG Oral Cap BEDTIME. documented as of this encounter (statuses as of 02/23/2019) Active Problems Problem Noted Date Cervical radiculopathy 09/19/2017 Rheumatoid arthritis GERD (gastroesophageal reflux disease) documented as of this encounter (statuses as of 02/23/2019) Immunizations Name Administration Dates Next Due Influenza [...] Sign Reading Time Taken Comments Blood Pressure 128/82 02/23/2019 1:00 PM EDT Pulse 80 02/23/2019 1:00 PM EDT Temperature - - Respiratory Rate - - Oxygen Saturation 99% 02/23/2019 1:00 PM EDT Inhaled Oxygen Concentration - - Weight 53.1 kg (117 lb) 02/23/2019 1:00 PM EDT Height 157.5 cm (5' 2") 02/23/2019 1:00 PM EDT Body Mass Index 21.4 02/23/2019 1:00 PM EDT documented in this encounter Patient Instructions Patient InstructionsSasha Conner NP - 02/23/2019 1:00 PM EDT I have sent a referral to the pain clinic for your neck pain. 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 Continue your medications and the home exercises that were given to you by physical therapy. I have given you a list of therapists - please consider calling to set up an appointment. Neck Exercises WHAT YOU NEED TO KNOW: Why is it important to do neck exercises? Neck exercises help reduce neck pain , and improve neck movement and strength. Neck exercises also help prevent long- term neck problems. What do I need to know about neck exercises? Do the exercises every day, or as often as directed by your healthcare provider. Move slowly, gently, and smoothly. Avoid fast or jerky motions. You may feel the exercises in your upper back and shoulders. Back and shoulder movement may help your neck feel better. Stand and sit the way your healthcare provider shows you. Good posture may reduce your neck pain. Check your posture often, even when you are not doing your neck exercises. Exercises: Starting position: You may sit or stand. Face forward. Your shoulders should be straight and relaxed. Neck pull backs: Gently pull your head straight back while your chin stays level with the floor. You may push your chin back with your hand. This is a small movement. Head tilts, forward and back: Gently bow your head and try to touch your chin to your chest. Your healthcare provider may tell you to push on the back of your neck to help bow your head. Raise your chin back to the starting position. Tilt your head back as far as possible so you are looking up at the ceiling. Your healthcare provider may tell you to lift your chin to help tilt your head back. Return your head to the starting position. Head tilts, side to side: Tilt your head, bringing your ear toward your shoulder. Then tilt your head toward the other shoulder. Head turns: Turn your head to look over your shoulder. Tilt your chin down and try to touch itto your shoulder. Do not raise your shoulder to your chin. Face forward again. Do the same on the other side. Upper back stretch: business services assistant the corner of a room. Hold your arms out to your sides with your elbows bent and your fingers pointed up. Place your palms flat on the sprague at ear level. Lean your body toward the corner, so you feel a stretch in your upper back and shoulders. When should I contact my healthcare provider? Your pain does not get better, even though you do the exercises as directed by your healthcare provider. You have questions or concerns about your condition, care, or exercise program. CARE AGREEMENT: You have the right to help plan your care. Learn about your health condition and how it may be treated. Discuss treatment options with your caregivers to decide what care you want to receive. You always have the right to refuse treatment. The above information is an educational resource coordinator only. It is not intended as medical advice for individual conditions or treatments. Talk to your doctor, nurse or pharmacist before following any medical regimen to see if it is safe and effective for you. 2016 [employer]. Information is for End User's use only and may not be sold, redistributed or otherwise used for commercial purposes. All illustrations and images included in CareNotes are the copyrighted property of [employer], [employer]. or [employer]. documented in this encounter Progress Notes Sasha Conner NP - 02/23/2019 1:00 PM EDT PATIENT: Lorenzo Durham : 1960 DATE OF SERVICE: 02/23/2019 CHIEF COMPLAINT: Chief Complaint Patient presents with Neck Pain Pt c/o chronic posterior neck pain. Would like referral to ortho. Subjective HISTORY OF PRESENT ILLNESS: Lorenzo Durham is a 58-y.o. female. Patient c/o posterior neck pain, stiffness in shoulders - painful to hyperextend and flex neck. This is a chronic ongoing issue. She saw Ortho in October - sent to neurosurgery in November - sent to physicaltherapy, who discharged her in December to home exercise program. Also c/o pain in wrists - currently undergoing EMG testing for carpal tunnel. She takes nsaids and warm baths to help with this, but she is trying to take less medications, and feels like the pain is getting gradually worse. She is not interested in doing physical therapy again, she states she has done this several times inthe past and does not feel it has helped. Xray cervical spine 12/01/18: IMPRESSION: No exaggerated vertebral mobility associated with fusion C4 and C5. Past Medical History: Diagnosis Date Arthritis Asthma mild, controlled GERD (gastroesophageal reflux disease) Postmenopausal Rheumatic fever treated with penicillin for a number of years Rheumatoid arthritis (HCC) Family History Problem Relation Age of Onset Heart Mother 50 [place] Kidney Disease Mother Thyroid Disease Mother Hypertension Mother Arthritis Mother No Known Problems Daughter Heart Disease Brother Heart Brother rheumatic valve disease Arthritis Sister Current Outpatient Medications Medication Sig Acetaminophen (TYLENOL ARTHRITIS PAIN PO) Take 400 mg by mouth NEEDED. fluticasone (FLONASE) 50 MCG/ACT Nasal Suspension SPRAY 1 SPRAY IN EACH NOSTRIL TWICE DAILY gabapentin (NEURONTIN) 300 MG Oral Cap TAKE ONE CAPSULE BY MOUTH TWICE A DAY Ibuprofen-diphenhydrAMINE HCl (ADVIL PM) 200-25 MG Oral Cap Take 2 Tabs by mouth EVERY BEDTIME. tizanidine (ZANAFLEX) 4 MG Oral Tab TAKE 1 TABLET BY MOUTH EVERY DAY NEEDED FOR MUSCLE SPASM No current facility-administered medications for this visit. Allergies Allergen Reactions Shellfish Allergy Anaphylaxis Social [...] file Gets together: Not on file Attends adventist service: Not on file Active member of [...] Narrative Lives with her daughter. Pets: dogs Over the last 2 weeks, have you been feeling down, depressed, anxious, or hopeless?: 3 Over the past 2 weeks, have you felt little interest or pleasure in doing things ?: 2 Trouble falling or staying asleep, or sleeping too much?: 1 Feeling tired or having little energy?: 3 Poor appetite or overeating?: 0 Feeling bad about yourself or that you are a failure or have let yourself or your family down?: 0 Trouble concentrating on things, such as reading the newspaper or watching TV?: 3 Moving or speaking so slowly that other people notice OR being fidgety and restless?: 2 Thoughts that you would be better off or of hurting yourself in some way?: 0 PHQ-9 TOTAL SCORE: 14 REVIEW OF SYSTEMS: Review of Systems Constitutional: Negative for chills, fever, malaise/fatigue and weight loss. Eyes: Negative for blurred vision. Respiratory: Negative for shortness of breath. Cardiovascular: Negative for chest pain and palpitations. Gastrointestinal: Negative for abdominal pain, constipation, diarrhea, nausea and vomiting. Musculoskeletal: Positive for joint pain (bilat wrists) and neck pain (posterior ). Negative for backpain, falls and myalgias. Neurological: Positive for sensory change (numbness fingertips) and headaches ( chronic). Negative for dizziness, tingling, speech change and weakness. Psychiatric/Behavioral: Positive for depression (d/t pain). Negative for suicidal ideas. The patientis nervous/anxious. Objective PHYSICAL EXAM: VITALS: BP 128/82 | Pulse 80 | Ht 5' 2" (1.575 m) | Wt 117 lb (53.1 kg) | SpO2 99% | BMI 21.40kg/m Body mass index is 21.4 kg/m. Physical Exam Constitutional: She is oriented to person, place, and time. She appears well- developed and well-nourished. HENT: Head: Normocephalic and atraumatic. Eyes: Pupils are equal, round, and reactive to light. Conjunctivae and EOM are normal. Neck: No spinous process tenderness and no muscular tenderness present. No neck rigidity. Decreased range of motion (d/t pain) present. No edema and no erythema present. Cardiovascular: Normal rate, regular rhythm, normal heart sounds and intact distal pulses. No murmur heard. Pulmonary/Chest: Effort normal and breath sounds normal. Musculoskeletal: She exhibits no edema. Right wrist: She exhibits decreased range of motion and tenderness. Left wrist: She exhibits decreased range of motion and tenderness. Neurological: She is alert and oriented to person, place, and time. Skin: Skin is warm and dry. Capillary refill takes less than 2 seconds. Psychiatric: She has a normal mood and affect. Nursing note and vitals reviewed. Depression Screening Over the last 2 weeks, have you been feeling down, depressed, anxious, or hopeless?: Nearly every day Over the past 2 weeks, have you felt little interest or pleasure in doing things ?: More than half the days Trouble falling or staying asleep, or sleeping too much?: Several days Feeling tired or having little energy?: Nearly every day Poor appetite or overeating?: Not at all Feeling bad about yourself or that you are a failure or have let yourself or your family down?: Not at all Trouble concentrating on things, such as reading the newspaper or watching TV?: Nearly every day Moving or speaking so slowly that other people notice OR being fidgety and restless?: More than halfthe days Thoughts that you would be better off or of hurting yourself in some way?: Not at all PHQ-9 TOTAL SCORE: 14 ASSESSMENT / IMPRESSION: ICD-9-CM ICD-10-CM 1. Cervical radiculopathy 723.4 M54.12 REFER TO PAIN CLINIC 2. Adjustment disorder, unspecified type 309.9 F43.20 Plan -Referral to pain clinic for neck pain -Continue medications and home exercises given by physical therapy -She feels her depression is due to her chronic pain issues. I have given her a list of therapists and encouraged to make an appointment. -Follow up for next annual exam or sooner if needed Author: Sasha Conner NP 02/23/2019 13:34 documented in this encounter Plan of Treatment Name Type Priority Associated Diagnoses Order Schedule REFER TO PAIN CLINIC Referral Routine Cervical radiculopathy Expected: , Expires: 02/24/2020 Health Maintenance Due Date Last Done Comments ZOSTER IMMUNIZATION SERIES (1 2010 of 2) INFLUENZA VACCINE (#1) 2019 06/19/2016 DEPRESSION SCREENING 02/24/2020 02/23/2019, 02/23/2019 LIPID DISORDER SCREENING 08/07/2022 08/07/2017 COLONOSCOPY SCREENING [...] filedocumented in this encounter Visit Diagnoses Diagnosis Cervical radiculopathy - Primary Brachial neuritis or radiculitis nos Adjustment disorder, unspecified type documented in this encounter Guarantor Name Account Type Relation to Date of Phone Billing Patient Address Lorenzo Durham Personal/Family [address] (Home) [place], [place] (Work) [address] documented as of this encounter
--- OUTSIDE RECORDS SUMMARY | 2019-04-07 01:41 | XMS REPORT | Continuity of Care Document ---
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 Onset: 02/06/2016 Low back pain Brenda Chapman M.D. Onset: 02/06/2016 Social History Type Date Description Comments Sex Unknown ETOH Use Currently consumes alcohol 2/week Tobacco Use Start: Unknown Patient has never smoked Smoking Status Reviewed: 03/04/19 Patient has never smoked Exercise Type/Frequency Exercises [...] MD 50mcg/Act Suspension Tylenol Unknown Advil Unknown Medications Administered in Office Medication SIG Qnty Indications Ordering Provider Date Depomedrol 40MG Jody Barcenas RPA-C 03/04/2019 Injection Depomedrol 40MG Jody Barcenas RPA-Kris 03/04/2019 Injection Immunizations Description No Information Available Vital Signs Date Vital Result Comment 03/04/2019 1:08pm Height 62 inches 5'2" Weight 115.00 lb BP Systolic 122 mmHg BP Diastolic 79 mmHg Respiratory Rate 13 /min Body Temperature 98.5 F Pain Level 6 at worse BMI (Body Mass Index) 21.0 kg/m2 02/25/2019 2:31pm Height 62 inches 5'2" Weight 115.00 lb Heart Rate 64 /min Body Temperature 99.2 F Pain Level 1 BMI (Body Mass Index) 21.0 kg/m2 Results Test Date Facility Test Result H/L Range Note Laboratory test 02/20/2019 [facility] Surgical SEE RESULT 1 , [address] [place] [address] [phone] Laboratory test 11/12/2018 [facility] Surgical SEE RESULT [address] [place] [address] [phone] 1 [id number] 2 SEE RESULT BELOW Name: LORENZO DURHAM : [address]: Yennifer Herrera MD Acct: [id number] Unit: [id number] AGE: 58 Location: [facility] Re02/20/19 SEX: F Status: DESHAWN JUAREZ SPEC: [id number] CLOTILDE: 02/20/19-3875 [facility] DR: Yennifer Herrera MD REQ: [id number] RECD: 02/20/19 STATUS: SOUT _ ORDERED: LEVEL 3 COMMENTS: [id number] FINAL DIAGNOSIS Left middle finger, excision: -- [...] 1257 END OF REPORT DEPARTMENT OF PATHOLOGY, [address] [place] [address] Jered Piper M.D. Director [facility] # [id number] 3 SEE RESULT BELOW Name: DWAYNE DURHAM : [address]: Yuriy Romero MD Acct: [id number] Unit: [id number] AGE: 58 Location: OR Re11/12/18 SEX: F Status: DEP SDC SPEC: [id number] CLOTILDE: 11/12/18- SUBM DR: Yuriy Romero MD REQ: [id number] RECD: 11/12/18 STATUS: SOUT _ ORDERED: , [...] 1529 END OF REPORT DEPARTMENT OF PATHOLOGY, [address] [place] [address] Jered Piper M.D. Director [facility] # [id number] Procedures Date Code Description Status 03/04/2019 Injection, Carpal Tunnel Completed 03/04/2019 Injection, Carpal Tunnel Completed Medical Devices Description No Information Available Encounters Type Date Location Provider Dx Diagnosis Office Visit 02/18/2019 Orthopedic Yennifer Herrera, G56.03 Carpal tunnel 11:[facility] syndrome, bilateral upper limbs R22.32 Localized swelling, mass and lump, left upper limb Assessments Date Code Description Provider 03/04/2019 R22.32 Localized swelling, mass and lump, left upper Jody Bitting, RPA-C limb 03/04/2019 G56.03 Carpal tunnel syndrome, bilateral upper limbs Jody Bitting, [facility] 02/25/2019 R22.32 Localized swelling, mass and lump, left upper Jody Bitting, RPA-C limb 02/18/2019 G56.03 Carpal tunnel syndrome, bilateral upper limbs Yennifer Herrera M.D. 02/18/2019 R22.32 Localized swelling, mass and lump, left upper Yennifer Herrera M.D. limb Plan of Treatment Future Appointment(s):04/01/2019 1:00 pm - [facility] - NATHALIE SanchezCR22.32 Localized swelling, mass and lump, left upper limbFollow up:Follow up: 4 [id number] Carpal tunnel syndrome, bilateral upper limbs Functional Status Description No Information Available Mental Status Description No Information Available Referrals Description No Information Available
[2019-04-07 02:05] LABS: ABS Eosinophils 0.1 10^3/ul (0-0.6); ABS Lymphocytes 2.3 10^3/ul (1.0-4.8); ABS Monocytes 0.5 10^3/ul (0-0.8); ABS Neutrophils 3.1 10^3/ul (1.5-7.7); Eosinophil % 1.2 %; Hematocrit 34 % (35-47); Hemoglobin 11.7 g/dL (12.0-16.0); Mean Corpuscular HGB Conc 35 g/dL (31-36); Mean Corpuscular Hemoglobin 33 pg (27-31); Mean Corpuscular Volume 96 fL (80-97); Mean Platelet Volume 7.8 fL (7.4-10.4); Platelet Count 168 10^3/uL (150-450); Red Blood Count 3.51 10^6 /uL (3.70-4.87); Red Cell Distribution Width 15 % (10-15); White Blood Count 5.9 10^3/uL (3.5-10.8)
[2019-04-07 02:24] LABS: Albumin 4.2 g/dL (3.2-5.2); Albumin/Globulin Ratio 1.7 (1-3); BUN/Creatinine Ratio 36.4 (8-20); Calcium 8.9 mg/dL (8.6-10.3); EGFR African American 177.7 (>60); EGFR Non-African American 146.9 (>60); Globulin 2.5 g/dL (2-4); Potassium 3.3 mmol/L (3.5-5.0); Total Bilirubin 0.2 mg/dL (0.2-1.0); Total Protein 6.7 g/dL (6.4-8.9)
--- NOTE | 2019-04-07 03:03 | ED ---
HPI Chest Pain - HPI Summary HPI Summary: Pt is a 58 y/o F presenting to the ED brought in by EMS for chest pain initially onset about 1 month ago. She states the pain has been getting progressively worse after a fall she sustained about 2 months ago. The pain is located under her L breast, and has not gone way with medication use. Tonight, she was having increased pain, trouble breathing, nausea, and vomiting, which she thinks may have been an anxiety attack. She admits to some drinking tonight. She denies myalgia or edema. She states the pain is worse with deep breaths. - History of Current Complaint Chief Complaint: EDChestWallPain Time Seen by Provider: 04/07/19 01:50 Hx Obtained From: Patient Onset/Duration: Started Weeks Ago, Still Present Timing: Intermittent, Lasting Hours Initial Severity: Moderate Current Severity: Severe Pain Intensity: 8 Pain Scale Used: 0-10 Numeric Chest Pain Location: Left Anterior Chest Pain Radiates: No Aggravating Factor(s): Deep Breaths Alleviating Factor(s): Nothing Associated Signs and Symptoms: Positive: Chest Pain, Anxiety, Shortness of Breath, Nausea, Vomiting. Negative: Edema - Allergy/Home Medications Allergies/Adverse Reactions: Allergies Allergy/AdvReac Type Severity Reaction Status Date / Time shellfish derived Allergy SEVERE Verified 02/20/19 11:15 STOMACH PAIN PMH/Surg Hx/FS Hx/Imm Hx Previously Healthy: Yes Endocrine/Hematology History: Denies: Hx Diabetes Cardiovascular History: Reports: Hx Rheumatic Fever - A CHILD Denies: Hx Congestive Heart Failure, Hx Hypertension, Hx Pacemaker/ICD, Other Cardiovascular Problems/Disorders History: Denies: Hx Renal Disease, Other Problems/Disorders Musculoskeletal History: Reports: Hx Arthritis, Hx Bursitis Denies: Other Musculoskeletal History Sensory History: Reports: Hx Contacts or Glasses - GLASSES Denies: Hx Hearing Aid Opthamlomology History: Reports: Hx Contacts or Glasses - GLASSES Neurological History: Reports: Hx Headaches, Hx Migraine - WEEKLY-TREATS WITH TYLENOL, Hx Nerve Disease - FIBROMYLAGIA Denies: Other Neuro Impairments/Disorders Psychiatric History: Reports: Hx Anxiety - NO MEDICATION FOR AT THIS TIME Denies: Hx Panic Disorder - Surgical History Surgery Procedure, Year, and Place: HERNIATED DISC SURGERY -CSP FUSION & LSP FUSION. APPENDECTOMY. CARPAL TUNNEL BILATERAL. HYSTERECTOMY Hx Anesthesia Reactions: No - Immunization History Immunizations Up to Date: Yes Infectious Disease History: No Infectious Disease History: Denies: Traveled Outside the [place] in Last 30 Days - Family History Known Family History: Positive: Cardiac Disease - Social History Alcohol Use: Weekly Hx Substance Use: No Substance Use Type: Reports: None Hx Tobacco Use: No Smoking Status (MU): Never Smoked Tobacco Have You Smoked in the Last Year: No Review of Systems Positive: Chest Pain Positive: Shortness Of Breath Positive: Vomiting, Nausea Negative: Myalgia, Edema Positive: Anxious All Other Systems Reviewed And Are Negative: Yes Physical Exam - Summary Physical Exam Summary: Constitutional: Well-developed, Well-nourished, Alert. (-) Distressed Skin: Warm, Dry HENT: Normocephalic; Atraumatic Eyes: Conjunctiva normal Neck: Musculoskeletal ROM normal neck. (-) JVD, (-) Stridor, (-) Tracheal deviation Cardio: Rhythm regular, rate normal, Heart sounds normal; Intact distal pulses; Radial pulses are 2+ and symmetric. (-) Murmur Pulmonary/Chest wall: Point tenderness under L breast. Effort normal. (-) Respiratory distress, (-) Wheezes, (-) Rales Abd: Soft, (-) tenderness, (-) Distension, (-) Guarding, (-) Rebound Musculoskeletal: (-) Edema Lymph: (-) Cervical adenopathy Neuro: Alert, Oriented x3. Slurred speech. Psych: Mood and affect Normal Triage Information Reviewed: Yes Vital Signs On Initial Exam: Initial Vitals Temp Pulse Resp BP Pulse Ox 96.5 F 74 16 129/92 100 04/07/19 01:39 04/07/19 01:39 04/07/19 01:39 04/07/19 01:39 04/07/19 01:39 Vital Signs Reviewed: Yes Procedures - Sedation Patient Received Moderate/Deep Sedation with Procedure: No Diagnostics - Vital Signs Vital Signs Temp Pulse Resp BP Pulse Ox 04/07/19 01:39 96.5 F 74 16 129/92 100 - Laboratory Lab Results: Lab Results 04/07/19 04/07/19 Range/Units 02:00 02:00 WBC 5.9 (3.5-10.8) 10^3/uL RBC 3.51 L (3.70-4.87) 10^6 /uL Hgb 11.7 L (12.0-16.0) g/dL Hct 34 L (35-47) % MCV 96 (80-97) fL MCH 33 H (27-31) pg MCHC 35 (31-36) g/dL RDW 15 (10-15) % Plt Count 168 (150-450) 10^3/uL MPV 7.8 (7.4-10.4) fL Neut % (Auto) 52.5 % Lymph % (Auto) 38.0 % [place] % (Auto) 7.6 % Eos % (Auto) 1.2 % Baso % (Auto) 0.7 % Absolute Neuts (auto) 3.1 (1.5-7.7) 10^3/ul Absolute Lymphs (auto) 2.3 (1.0-4.8) 10^3/ul Absolute Monos (auto) 0.5 (0-0.8) 10^3/ul Absolute Eos (auto) 0.1 (0-0.6) 10^3/ul Absolute Basos (auto) 0.0 (0-0.2) 10^3/ul Absolute Nucleated RBC 0.0 10^3/ul Nucleated RBC % 0.0 Sodium 143 (135-145) mmol/L Potassium 3.3 L (3.5-5.0) mmol/L Chloride 111 (101-111) mmol/L Carbon Dioxide 22 (22-32) mmol/L Anion Gap 10 (2-11) mmol/L BUN 16 (6-24) mg/dL Creatinine 0.44 L (0.51-0.95) mg/dL Est GFR ( Amer) 177.7 (>60) Est GFR (Non-Af Amer) 146.9 (>60) BUN/Creatinine Ratio 36.4 H (8-20) Glucose 97 (70-100) mg/dL Calcium 8.9 (8.6-10.3) mg/dL Total Bilirubin 0.20 (0.2-1.0) mg/dL AST 21 (13-39) U/L ALT 11 (7-52) U/L Alkaline Phosphatase 47 (34-104) U/L Troponin I 0.00 (<0.04) ng/mL Total Protein 6.7 (6.4-8.9) g/dL Albumin 4.2 (3.2-5.2) g/dL Globulin 2.5 (2-4) g/dL Albumin/Globulin Ratio 1.7 (1-3) Serum Alcohol 213 H (<10) mg/dL Result Diagrams: 04/07/19 02:00 04/07/19 02:00 Lab Statement: Any lab studies that have been ordered have been reviewed, and results considered in the medical decision making process. - Radiology CXR Radiology Interpretation Completed By: ED Physician Summary of Radiographic Findings: No acute process. Pending official radiology report. - EKG 0134 Cardiac Rate: NL - 74bpm EKG Rhythm: Sinus Rhythm ST Segment: Normal Ectopy: None Summary of EKG Findings: EKG at 0134 shows NSR at 74bpm. No STEMI. Chest Pain Course/Dx - Course Course Of Treatment: Patient is here with one month of constant left-sided chest pain. Upon arrival, patient is obviously intoxicated. Patient's story is not consistent with ACS. Patient had a negative EKG and troponin. Patient had negative chest x-ray for acute abnormality. Patient was intoxicated with an alcohol level of 218. Patient's story is not consistent with PE and she had a wells score of 0. Patient was encouraged to take Motrin for her pain and to follow-up her primary care doctor - Diagnoses Provider Diagnoses: Chest pain, Alcohol intoxication Discharge ED - Sign-Out/Discharge Documenting (check all that apply): Patient Departure - Discharge Plan Condition: Stable Disposition: HOME Patient Education Materials: Chest Pain (ED), Alcohol Intoxication (ED) Referrals: Lashell Colon MD [Primary Care Provider] - Additional Instructions: Follow up with your primary care provider within the next 1-3 days. Come back to the emergency department with any worsening pain, intractable vomiting, or shortness of breath. Take 600mg Ibuprofen as needed for your pain. Stop drinking alcohol. - Billing Disposition and Condition Condition: STABLE Disposition: Home - Attestation Statements Document Initiated by Scribe: Yes Documenting Scribe: Chantal Daly Provider For Whom Adrian is Documenting (Include Credential): Daniel Jovel MD. Scribe Attestation: Chantal Jimenez, scribed for Daniel Jovel MD. on 04/07/19 at 0457. Scribe Documentation Reviewed: Yes Provider Attestation: The documentation as recorded by the scribe, Chantal Daly accurately reflects the service I personally performed and the decisions made by me, Daniel Jovel MD. Status of Scribe Document: Viewed
[2019-04-07 03:49] VITALS: BP 105/74
== END 2019-04-07 03:47 | disposition home or self-care (01) ==
LOC: ED 01:34
DX: R07.9 Chest pain, unspecified (principal); F10.929 Alcohol use, unspecified with intoxication, unspecified; F41.9 Anxiety disorder, unspecified; Z79.899 Other long term (current) drug therapy
CPT/HCPCS: 36415; 71045; 80053; 80320; 84484; 85025; 93005; 99284; G0480

== ENCOUNTER 2019-05-07 16:07 | Observation (INO) | payer OTHER ==
--- NOTE | 2019-05-07 17:26 | ED ---
Dizziness - HPI Summary HPI Summary: This patient is a 58 year old F presenting to ED with a chief complaint of intermittent room spinning since this morning. Patient woke up to the room spinning but it went away. She states it occurred again. Patient went to her PCP who found a fever of 104 F and a BP in the 170s. Patient also reports a DONALDSON and dizziness. PMHx of arthritis. BP on triage noted to be 196/127, but the patient reports she has never had high BP. Patient has a history of intermittent vertigo for the past two years, but it was more severe this time. In the ED room, patient feels normal except for a mild headache. BP noted to be 190/110 on left arm and 179/106 on the right arm. Patient reports starting magnesium supplements ([id number] tablet per day) along with a multivitamin two months ago. Patient is taking Gabapentin 200mg in the morning and 200mg in the night, but she has been taking this for a long time and the dosage has not changed. The patient rates the pain 4/10 in severity. Symptoms aggravated by nothing. Symptoms alleviated by nothing. Patient reports chronic mid-back pain. Patient denies chest pain, shortness of breath, visual changes, swelling in the arms and legs, nausea, black tarry stools, burning upon urination, vaginal discharge/bleeding. - History Of Current Complaint Chief Complaint: EDHypertension Stated Complaint: VERTIGO PER PT Time Seen by Provider: 05/07/19 16:29 Hx Obtained From: Patient Onset/Duration: Resolved, Suddenly Timing: Seconds Severity Initially: Mild Severity Currently: Mild Character: Room Spinning, Dizzy Aggravating Factor(s): Nothing Alleviating Factor(s): Nothing Associated Signs And Symptoms: Positive: Negative - chest pain, shortness of breath, visual changes, swelling in the arms and legs, nausea, black tarry stools, burning upon urination, vaginal discharge/bleeding. - Allergies/Home Medications Allergies/Adverse Reactions: Allergies Allergy/AdvReac Type Severity Reaction Status Date / Time shellfish derived Allergy SEVERE Verified 05/07/19 16:09 STOMACH PAIN PMH/Surg Hx/FS Hx/Imm Hx Endocrine/Hematology History: Denies: Hx Diabetes Cardiovascular History: Reports: Hx Rheumatic Fever - A CHILD Denies: Hx Congestive Heart Failure, Hx Pacemaker/ICD, Other Cardiovascular Problems/Disorders History: Denies: Hx Renal Disease, Other Problems/Disorders Musculoskeletal History: Reports: Hx Arthritis, Hx Bursitis Denies: Other Musculoskeletal History Sensory History: Reports: Hx Contacts or Glasses - GLASSES Denies: Hx Hearing Aid Opthamlomology History: Reports: Hx Contacts or Glasses - GLASSES Neurological History: Reports: Hx Headaches, Hx Migraine - WEEKLY-TREATS WITH TYLENOL, Hx Nerve Disease - FIBROMYLAGIA Denies: Other Neuro Impairments/Disorders Psychiatric History: Reports: Hx Anxiety - NO MEDICATION FOR AT THIS TIME Denies: Hx Panic Disorder - Surgical History Surgery Procedure, Year, and Place: HERNIATED DISC SURGERY -CSP FUSION & LSP FUSION. APPENDECTOMY. CARPAL TUNNEL BILATERAL. HYSTERECTOMY. Sinus surgery in December 2018 Hx Anesthesia Reactions: No Infectious Disease History: No Infectious Disease History: Denies: Traveled Outside the [place] in Last 30 Days - Family History Known Family History: Positive: Cardiac Disease - Social History Alcohol Use: Weekly Hx Substance Use: No Substance Use Type: Reports: None Hx Tobacco Use: No Smoking Status (MU): Never Smoked Tobacco Have You Smoked in the Last Year: No Review of Systems Positive: Fever - 104 F Negative: Chest Pain Negative: Shortness Of Breath Gastrointestinal: Negative - Black tarry stools Negative: Nausea Genitourinary: Negative - Vaginal bleeding/discharge Negative: burning, dysuria Neurological: Negative - Swelling in the arms and legs, Other - Dizziness (room spinning) Positive: Headache All Other Systems Reviewed And Are Negative: Yes Physical Exam - Summary Physical Exam Summary: Constitutional: Well-developed, Well-nourished, Alert. (-) Distressed Skin: Warm, Dry HENT: Normocephalic; Atraumatic Eyes: Conjunctiva normal Neck: Musculoskeletal ROM normal neck. (-) JVD, (-) Stridor, (-) Tracheal deviation Cardio: Rhythm regular, rate normal, Heart sounds normal; Intact distal pulses; The pedal pulses are 2+ and symmetric. Radial pulses are 2+ and symmetric. Pulmonary/Chest wall: Effort normal. (-) Respiratory distress, (-) Wheezes, (-) Rales Abd: Soft, (-) tenderness, (-) Distension, (-) Guarding, (-) Rebound Musculoskeletal: (-) Edema Neuro: Alert, PERRL, Oriented x3, Strength normal, Cranial nerves II-XII are grossly intact. SILT, Strength 5/5 BUE and BLE, (-) Dysmetria, (-) Nystagmus. Psych: Mood and affect Normal Triage Information Reviewed: Yes Vital Signs On Initial Exam: Initial Vitals Temp Pulse Resp BP Pulse Ox 98.2 F 74 18 196/127 100 05/07/19 16:09 05/07/19 16:09 05/07/19 16:09 05/07/19 16:09 05/07/19 16:09 Vital Signs Reviewed: Yes Procedures - Sedation Patient Received Moderate/Deep Sedation with Procedure: No Diagnostics - Vital Signs Vital Signs Temp Pulse Resp BP Pulse Ox 05/07/19 16:09 98.2 F 74 18 196/127 100 - Laboratory Result Diagrams: 05/07/19 17:14 05/07/19 17:14 Lab Statement: Any lab studies that have been ordered have been reviewed, and results considered in the medical decision making process. - Radiology CXR Radiology Interpretation Completed By: Radiologist Summary of Radiographic Findings: No acute cardiopulmonary by radiograph. Dr. Grossman has reviewed this radiology report. - CT Brain CT Interpretation Completed By: Radiologist Summary of CT Findings: No acute intracranial abnormality. Dr. Grossman has reviewed this radiology report. Dizzy Course/Dx - Course Course Of Treatment: This patient is a 58 year old F presenting to ED with a chief complaint of intermittent room spinning since this morning. Brain CT revealed No acute intracranial abnormality. Blood work revealed RBC 3.61, Hgb 11.9, MCH 33, platelets 125, creatinine 0.44, BUN/creatinine ratio 34.1. CXR revealed: No acute cardiopulmonary by radiograph. In the ED course, patient received Catapres. UA revealed urine specific gravity 1.008. Discussed results with hospitalist, Dr. Rea, who accepted the patient for admission to [facility] [place]. Patient will be admitted to [facility] with dx of hypertensive emergency. Patient understands and agrees with this plan. - Diagnoses Provider Diagnoses: Hypertensive emergency - Provider Notifications Discussed Care Of Patient With: Shanna Rea Time Discussed With Above Provider: 18:11 Instructed by Provider To: Admit As Observation - Discussed results with hospitalist, Dr. Rea, who accepted the patient for admission to [facility] [place]. Discharge ED - Sign-Out/Discharge Documenting (check all that apply): Patient Departure - Admit - Discharge Plan Condition: Stable Disposition: HOME Referrals: Lashell Colon MD [Primary Care Provider] - - Billing Disposition and Condition Condition: STABLE Disposition: Home - Attestation Statements Document Initiated by Adrian: Yes Documenting Scribe: Duane Rivera Provider For Whom Adrian is Documenting (Include Credential): Rene Grossman MD Scribbernice Attestation: I, Duane Rivera, scribed for Rene Grossman MD on 05/07/19 at 1912. Scribe Documentation Reviewed: Yes Provider Attestation: The documentation as recorded by the Duane bella accurately reflects the service I personally performed and the decisions made by me, Rene Grossman MD Status of Scribe Document: Viewed
[2019-05-07 17:27] LABS: ABS Lymphocytes 1.5 10^3/ul (1.0-4.8); ABS Monocytes 0.3 10^3/ul (0-0.8); Eosinophil % 0.9 %; Hematocrit 35 % (35-47); Hemoglobin 11.9 g/dL (12.0-16.0); Lymphocyte % 38.4 %; Mean Corpuscular HGB Conc 34 g/dL (31-36); Mean Corpuscular Hemoglobin 33 pg (27-31); Mean Corpuscular Volume 97 fL (80-97); Mean Platelet Volume 8.5 fL (7.4-10.4); Nucleated Red Blood Cells % 0.1; Platelet Count 125 10^3/uL (150-450); Red Blood Count 3.61 10^6 /uL (3.70-4.87); Red Cell Distribution Width 14 % (10-15); White Blood Count 3.9 10^3/uL (3.5-10.8)
[2019-05-07 17:34] LABS: Activated Partial Thrombo Time 31.5 seconds (26.0-38.0); INR 0.85 (0.82-1.09)
[2019-05-07 17:41] LABS: Albumin 4.2 g/dL (3.2-5.2); Albumin/Globulin Ratio 1.6 (1-3); BUN/Creatinine Ratio 34.1 (8-20); Calcium 9.4 mg/dL (8.6-10.3); EGFR African American 177.7 (>60); EGFR Non-African American 146.9 (>60); Globulin 2.6 g/dL (2-4); Indirect Bilirubin 0.3 mg/dL (0.3-1.0); Potassium 3.8 mmol/L (3.5-5.0); Total Bilirubin 0.4 mg/dL (0.2-1.0); Total Protein 6.8 g/dL (6.4-8.9)
[2019-05-07] MEDS ORDERED: cloNIDine TAB* 0.1 MG PO ONE (17:54)
[2019-05-07 18:07] LABS: Urine Appearance Clear; Urine Bilirubin Negative (Negative); Urine Blood Negative (Negative); Urine Color Yellow; Urine Glucose Negative (Negative); Urine Ketones Negative (Negative); Urine Nitrite Negative (Negative); Urine Protein Negative (Negative); Urine Specific Gravity 1.008 (1.010-1.030); Urine Urobilinogen Negative (Negative)
[2019-05-07 18:18] LABS: TSH (Thyroid Stimulating Horm) 0.45 mcIU/mL (0.34-5.60)
[2019-05-07] MEDS ORDERED: Senna TAB 8.6 mg* TAB PO PRN (19:02)
[2019-05-07] MEDS ORDERED: Ondansetron INJ* 2 MG/ML VIAL IV PRN (19:02)
[2019-05-07] MEDS ORDERED: Acetaminophen TAB* 325 MG PO PRN (19:02)
[2019-05-07] MEDS ORDERED: Al Hydrox/Mg Hydrox/Simet LIQ* 30 ML UDC PO PRN (19:02)
[2019-05-07] MEDS ORDERED: Aspirin 81 mg CHEW TAB* 81 MG TAB.CHEW PO ONE (19:11)
[2019-05-07] MEDS ORDERED: tiZANidine TAB* 2 MG PO PRN (19:17)
--- OUTSIDE RECORDS SUMMARY | 2019-05-07 19:39 | XMS REPORT | Continuity of Care Document ---
:1960 External Reference #:[id number] Author Name Socrates Wilkins DO, MPH Address [address] [place] [address], [address] [place] [address] Care Team Providers Name Role Phone Lashell Colon J, MD - Family Care Team Information Manager Behavior [phone] Medicine Problems Active Problems Provider Date Radiculopathy, [...] Use Denies Drug Use Smoking Status Reviewed: 04/16/19 Patient is a former smoker Allergies, Adverse Reactions, Alerts Active Allergies Reaction Severity Comments Date Shellfish-Derived Products Anaphylaxis 03/26/2019 Medications Active Medications SIG Qnty Indications Ordering Provider Date Oxycodone HCL si by mouth 30tabs Socrates Wilkins DO, 03/26/2019 5mg every 8 to 12 [...] Available Vital Signs Date Vital Result Comment 04/16/2019 2:03pm BP Systolic 112 mmHg BP Diastolic 70 mmHg Heart Rate 68 /min Respiratory Rate 18 /min Height 62 inches 5'2" Weight 117.00 lb Pain Level 7 Pain at this time. Pain Level With Medicine 6 on average with meds Pain Level Without Medicine 9 without meds BMI (Body Mass Index) 21.4 kg/m2 03/26/2019 2:05pm BP Systolic 130 mmHg BP Diastolic 82 mmHg Heart Rate 84 /min Respiratory Rate 20 /min Height 62 inches 5'2" Weight 117.00 lb Pain Level 7 Pain at this time. 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, lumbar region M54.16 Radiculopathy, lumbar region M54.12 Radiculopathy, cervical region K21.9 Gastro-esophageal reflux disease without esophagitis J45.998 Other asthma R51 Headache Z79.891 intermediate (current) use of opiate analgesic Z13.31 Encounter for screening for depression Z71.89 Other specified counseling Z71.3 Dietary counseling and surveillance Assessments Date Code Description Provider 04/16/2019 G89.28 Other chronic postprocedural pain Wilkins, Socrates, DO, MPH 04/16/2019 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, cervical region Wilkins, Socrates, DO, MPH 04/16/2019 M54.2 Cervicalgia Wilkins, Socrates, DO, MPH 04/16/2019 M54.5 Low back pain Wilkins, Socrates, DO, MPH 04/16/2019 M54.6 Pain in thoracic spine Wilkins, Socrates, DO, MPH 04/16/2019 M79.641 Pain in right hand Wilkins, Socrates, DO, MPH 04/16/2019 M54.16 Radiculopathy, lumbar region Wilkins, Socrates, DO, MPH 04/16/2019 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 Wilkins, Socrates , DO, MPH 03/26/2019 G89.28 Other chronic postprocedural pain Wilkins, Socrates, DO, MPH 03/26/2019 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, cervical region Wilkins, Socrates, DO, MPH 03/26/2019 M54.2 Cervicalgia Wilkins, Socrates, DO, MPH 03/26/2019 M54.5 Low back pain Wilkins, Socrates, DO, MPH 03/26/2019 M43.26 Fusion of spine, lumbar region Wilkins, Socrates, DO, MPH 03/26/2019 M54.16 Radiculopathy, lumbar region Wilkins, Socrates, DO, MPH 03/26/2019 M54.12 Radiculopathy, cervical region Wilkins, Socrates, DO, MPH 03/26/2019 K21.9 Gastro-esophageal reflux disease without Wilkins, Socrates, DO, MPH esophagitis 03/26/2019 J45.998 Other asthma Wilkins, Socrates, DO, MPH 03/26/2019 R51 Headache Socrates Wilkins DO MPH 03/26/2019 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 Symptoms and complaints discussed and reviewed today. No significant changes in physical findings. Continue current medical pain management.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, cervical regionComments: Chronic. Symptoms and complaints discussed and reviewed today. No significant changes in physical findings. Continue current medical pain management.M54.2 CervicalgiaComments:Chronic. Symptoms and complaints discussed and reviewed today. No significant changes in physical findings. Continue current medical pain management.M54.5 Low back painNew Xrays:Spine, Lumbosacral, 2 Or 3 Views, Ordered: 04/16/19Comments:Chronic. Symptoms and complaints discussed and reviewed today.No changes in physical findings. Patient is stable and comfortable when current medical therapy is rendered.M54.6 Pain in thoracic spineNew Xrays:Spine, Thoracic, 3 Views, Ordered: 04/16/19Comments: Chronic.Symptoms and complaints discussed and reviewed today. No significant changes in physical findings. Continue current medical pain management.M79.641 Pain in right handComments:Chronic. Symptoms and complaints discussed and reviewed today. No significant changes in physical findings. Continue current medical pain management.M54.16 Radiculopathy, lumbar regionComments:Chronic. Symptoms and complaints discussed and reviewed today. No changes in physical findings; patient is stable on current medical therapy.Z79.891 intermediate ( current) use of opiate analgesicNew Labs:Urine Drug Screen, Ordered: Comments:Urine drug screen sample taken. Rapid Point of [...] AM, AMPH, MANNIE, JANELLE, BUP, CARIS, COCM, ETG, FENT, MCSHSG, OPI, OXY, PCP, TAPEN, [...] controlled substances and is considered standard of care.AllComments:Continue current medical pain management; injection therapy, osteopathic manipulation, PT / modalities, and consults as needed to manage chronic pain.Non - opioid pain management discussed and optionsdiscussed.Side effects discussed; anticipatory guidance given. Patient clearly understand and agree with all medical treatments and suggestions. 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 Importance of regular nutrition throughout the day discussed.Activity as toleratedContinue with PCP Functional Status Description No Information Available Mental Status Description No Information Available Referrals Description No Information Available
--- OUTSIDE RECORDS SUMMARY | 2019-05-07 19:39 | XMS REPORT | Summary of Care ---
:1960 Author Organization [facility] Address [address] HAYDEE Acosta [address] Care Team Providers Name Role Phone Lashell Colon MD Primary Care Provider Reason for Visit Reason Comments Dizziness 2 days bad dizziness, this morning before she got up and at breakfast severe spinning feeling, nausea and headache. and can smell gasoline (not propane) all the time Encounter Details Date Type Department Care Team Description 05/07/2019 Office Visit [facility] Andriy Sierra DO Dizziness (Primary Dx); Practice [address] Nausea; [address] [place] [address] Elevated blood pressure reading; [place] [address] New onset headache [phone] Allergies Active Allergy Reactions Severity Noted Date Comments Shellfish Allergy Anaphylaxis 11/20/2017 documented as of this encounter (statuses as of 05/07/2019) Medications Medication Sig Dispensed Refills Start Date End Date Status fluticasone (FLONASE) SPRAY 1 SPRAY IN 1 Bottle 5 04/14/2018 Active 50 MCG/ACT Nasal EACH NOSTRIL SuspensionIndications: TWICE DAILY ETD (Eustachian tube dysfunction), bilateral Acetaminophen (TYLENOL Take 400 mg by 0 Active ARTHRITIS PAIN PO) mouth NEEDED. Ibuprofen-diphenhydrAMI Take 2 Tabs by 0 Active NE HCl (ADVIL PM) mouth EVERY 200-25 MG Oral Cap BEDTIME. tizanidine (ZANAFLEX) 4 TAKE 1 TABLET BY 30 Tab 5 04/20/2019 Active MG Oral TabIndications: MOUTH EVERY DAY Muscle spasm NEEDED FOR MUSCLE SPASM gabapentin (NEURONTIN) TAKE ONE CAPSULE 60 Cap 5 04/20/2019 Active 300 MG Oral BY MOUTH TWICE A CapIndications: DAY Rheumatoid arthritis, involving unspecified site, unspecified rheumatoid factor presence (HCC), Muscle spasm documented as of this encounter (statuses as of 05/07/2019) Active Problems Problem Noted Date Cervical radiculopathy 09/19/2017 Rheumatoid arthritis GERD (gastroesophageal reflux disease) documented as of this encounter (statuses as of 05/07/2019) Immunizations Name Administration Dates Next Due Influenza [...] Sign Reading Time Taken Comments Blood Pressure 184/90 05/07/2019 3:40 PM EST Pulse 70 05/07/2019 3:19 PM EST Temperature 37.4 05/07/2019 3:40 PM EST C (99.3 F) Respiratory Rate 18 05/07/2019 3:19 PM EST Oxygen Saturation 98% 05/07/2019 3:19 PM EST Inhaled Oxygen Concentration - - Weight 53.6 kg (118 lb 3.2 oz) 05/07/2019 3:19 PM EST Height 157.5 cm (5' 2") 05/07/2019 3:19 PM EST Body Mass Index 21.62 05/07/2019 3:19 PM EST documented in this encounter Progress Notes Andriy Sierra, DO - 05/07/2019 3:20 PM EST PATIENT: Lorenzo Durham : 1960 DATE OF SERVICE: 05/07/2019 CHIEF COMPLAINT: Chief Complaint Patient presents with Dizziness 2 days bad dizziness, this morning before she got up and at breakfast severe spinning feeling, nausea and headache. and can smell gasoline (not propane) all the time Subjective HISTORY OF PRESENT ILLNESS: Lorenzo Durham is a 58-y.o. female. HPI Since yesterday smelling gasoline and others are not Today woke up dizzy and room spinning With head movements and also without head movements No recent cold infections New onset headache left [facility] and different from migraine ones Hypertensive today and 2nd reading in 180's systolic and no such prior hx Chronic nsaid use at night for sleep - uses PM version No stroke like weakness No speech issues Some nausea today too Past Medical History: Diagnosis Date Arthritis Asthma mild, controlled GERD (gastroesophageal reflux disease) Postmenopausal Rheumatic fever treated with penicillin for a number of years Rheumatoid arthritis (HCC) Family History Problem Relation Age of Onset Heart Mother 50 [place] Kidney Disease Mother Thyroid Disease Mother Hypertension [...] file Gets together: Not on file Attends islam service: Not on file Active member of [...] Narrative Lives with her daughter. Pets: dogs REVIEW OF SYSTEMS: Review of Systems Constitutional: Negative for fever. Cardiovascular: Negative for chest pain. Gastrointestinal: Negative for abdominal pain. Neurological: Positive for dizziness and headaches. Negative for tingling, sensory change, speech change, focal weakness and loss of consciousness. Objective PHYSICAL EXAM: VITALS: BP (!) 184/90 | Pulse 70 | Temp 99.3 F (37.4 C) (Tympanic) | Resp 18 | Ht 5' 2"(1.575 m) | Wt 118 lb 3.2 oz (53.6 kg) | SpO2 98% | BMI 21.62 kg/m Body mass index is 21.62 kg/m. Physical Exam Constitutional: General: She is not in acute distress. Appearance: She is not toxic-appearing. Cardiovascular: Rate and Rhythm: Normal rate and regular rhythm. Pulmonary: Effort: Pulmonary effort is normal. Breath sounds: Normal breath sounds. Neurological: Mental Status: She is alert. Comments: CN 3-12 intact Upper and lower extremities strength intact and symmetric Cerebellum exams: Finger to nose, rapid hand alternating and heel to neff negative acacia daily pike neg ASSESSMENT / IMPRESSION: ICD-9-CM ICD-10-CM 1. Dizziness 780.4 R42 2. Nausea 787.02 R11.0 3. Elevated blood pressure reading 796.2 R03.0 4. New onset headache 784.0 R51 Plan Dizziness, elevated blood pressure and new kind of headache. She needs STAT head imaging. Directed to ER. Informed [place] [facility] physician. Risk factor: chronic NSAID use Author: Andriy Sierra DO 05/07/2019 17:04 documented in this encounter Plan of Treatment Health Maintenance Due Date Last Done Comments ZOSTER IMMUNIZATION SERIES (1 2010 of 2) INFLUENZA VACCINE (#1) 2019 06/19/2016 DEPRESSION SCREENING 02/24/2020 02/23/2019, 02/23/2019 LIPID DISORDER SCREENING 02/26/2024 02/25/2019, 08/07/2017 COLONOSCOPY SCREENING 11/21/2027 11/20/2017 HPV IMMUNIZATION [...] filedocumented in this encounter Visit Diagnoses Diagnosis Dizziness - Primary Dizziness and giddiness Nausea Nausea alone Elevated blood pressure reading Elevated blood pressure reading without diagnosis of hypertension New onset headache Headache documented in this encounter Guarantor Name Account Type Relation to Date of Phone Billing Patient Address Lorenzo Durham Personal/Family 1960 [address] (Home) [address] [place], [place] (Work) [id number] documented as of this encounter
[2019-05-07] MEDS ORDERED: Iohexol 350* (CONTRAST) 500 ML MDV IV ONE (20:29)
[2019-05-07] MEDS: Gabapentin CAP(*) 300 MG PO SCH (21:28)
[2019-05-07] MEDS: Clopidogrel TAB* 75 MG PO SCH ×2 (21:29→23:19)
[2019-05-07] MEDS ORDERED: diPHENhydraMINE PO* 25 MG PO PRN (21:36)
--- NOTE | 2019-05-07 21:56 | HP ---
CC: Dr. Colon; Dr. Haney. * HISTORY AND PHYSICAL: DATE OF ADMISSION: 05/07/19 PRIMARY CARE PROVIDER: Dr. Colon. ATTENDING PHYSICIAN WHILE IN THE HOSPITAL: Dr. Shanna Hayden * (dictated by HAYDEE Barba). CONSULTING NEUROLOGIST: Dr. Haney. CHIEF COMPLAINT: Dizziness. HISTORY OF PRESENT ILLNESS: Lorenzo Durham is a 58-year-old Female with a past medical history significant for rheumatoid arthritis, osteoarthritis, depression, anxiety, and GERD, who presents to the emergency department due to severe dizziness since awakening. The patient tells me that she felt a sensation of the room spinning even before she opened her eyes when she woke up around 9 a.m. this morning. She has had persistent dizziness with a sensation of room spinning since that point that has not gotten better. She does have a history of vertigo when she has inner ear infections; however, has never been this severe. Since she has arrived to the emergency department, the dizziness has greatly improved, though was still persistent. She denies numbness, weakness, or tingling on the left side of her body. She does not believe that she had facial asymmetry or speech slurring. She also reports a left-sided headache. She does endorse that she has some hand numbness, but this is bilateral and chronic for her as she does have history of carpal tunnel. She also mentions me that she has been intermittently for the last 8 months perceiving the smell of gas, which her does not ever smell. Additionally , they do not have gas in their home as everything is electric. She did have some gait stability issues earlier in the day and when ambulating to the bathroom in the emergency department due to the sensation of room spinning. She has been feeling nauseous; however, she has not vomited. She denies abdominal pain, chest pain, difficulty breathing, visual changes, dysuria, or issue with her bowels. EMERGENCY DEPARTMENT COURSE: When the patient arrived to the emergency department, her vitals signs were as follows: Temperature 98.2, pulse rate 74, respiratory rate 18, oxygen saturation 100% on room air, blood pressure 196/ 127. In the emergency department, she received clonidine 0.1 mg p.o. and the hospitalists were asked to evaluate the patient for admission. PAST MEDICAL HISTORY: 1. GERD. 2. Depression. 3. Anxiety. 4. Osteoarthritis. 5. Rheumatoid arthritis. 6. Carpal tunnel bilaterally. 7. Chronic back pain. PAST SURGICAL HISTORY: 1. Removal of ganglion cyst to her finger. 2. Bilateral carpal tunnel release surgeries. 3. Hysterectomy. 4. Appendectomy. 5. Lumbar fusion. 6. Cervical fusion. HOME MEDICATIONS: 1. Zanaflex 4 mg p.o. q.p.m. p.r.n. muscle spasms. 2. Flonase nasal spray 2 sprays both nares daily. 3. Gabapentin 300 mg p.o. b.i.d. 4. Tylenol 500 mg p.o. b.i.d. p.r.n. headaches. 5. Naproxen/diphenhydramine 220/25 mg two tab p.o. at bedtime p.r.n. insomnia. 6. Oxycodone 5 mg p.o. q.12 hours p.r.n. severe pain. ALLERGIES: Reaction of severe abdominal pain to SHELLFISH. FAMILY HISTORY: The patient's father is living at age 101 and has a pacemaker for reasons unknown to the patient. The patient's mother at age 89 due to kidney failure. She does have a history of hypertension and a prior OR. SOCIAL HISTORY: The patient is a Hungarian. 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 She very infrequently smoked as a teenager and has not smoked cigarettes since that point. She drinks approximately 6 alcoholic beverages per week and denies illicit drug use. The patient would like her daughter, Nori Durham to be her surrogate medical decision maker should she need one. Her phone number is [phone]. REVIEW OF SYSTEMS: A 11 point review of systems was completed, all pertinent positives and negatives are above in the HPI. All other systems are negative. PHYSICAL EXAMINATION GENERAL: Thin female, appears younger than stated age. Lying upright in the hospital bed, appearing comfortable and in no acute distress. HEENT: Eyes; PERRLA. Sclerae anicteric. No nystagmus. Visual mckinnon are full to confrontation. Head; normocephalic and atraumatic. ENT: Mucous membranes are moist. NECK: Supple without JVD. LUNGS: Clear to auscultation throughout. CARDIO: Regular rate and rhythm without murmurs, rubs, or gallops. ABDOMEN: Soft, nontender, and nondistended. EXTREMITIES: No clubbing, cyanosis, or edema. NEUROLOGIC: The patient has a normal gait. Sensation is diminished to light touch in the right lower extremity, right upper extremity, and the right aspect of the face and in the right chest. Strength is 5/5 in all extremities. Face is symmetrical, tongue is midline, speech is clear. Gait is normal and steady. SKIN: Warm, dry, and intact. DIAGNOSTIC STUDIES/LAB DATA: White blood cell count 3.9, hemoglobin 11.9, hematocrit 35, platelet count 125, INR 0.85, PTT 31.5. Sodium 141, potassium 3.8, chloride 107, carbon dioxide 27, anion gap 7, BUN 15, creatinine 0.44, glucose 91, calcium 9.4, LFTs unremarkable. TSH 0.45. Urinalysis is unremarkable. Brain CT: Impression: No acute intracranial abnormality. Chest x-ray: Impression: No acute cardiopulmonary pathology. EKG normal sinus rhythm. No ST elevations or depressions. Rate is 86 beats per minute, normal axis. ASSESSMENT AND PLAN: Lorenzo Durham is a 58-year-old female with past medical history significant for chronic back pain, rheumatoid arthritis, depression and anxiety who presents to the emergency department due to persistent severe dizziness and found to have sensation deficits on the right side. She will be admitted OBV for: 1. Right-sided numbness. The patient does not complain of numbness; however, on physical exam is found to have diminished sensation throughout the entire right aspect of her body. In conjunction with her dizziness, I do have concern for a stroke. I have discussed this with Dr. Haney who will be seeing the patient tomorrow. I have ordered brain MRI with and without contrast considering she has been smelling gas intermittently for the last several months. I have ordered a full dose of aspirin and 75 mg of Plavix to be given now. I have ordered an A1c and lipid panel for tomorrow. Considering this hemiparesis, I have also ordered folate and B12. She is out of window for a TPA considering her symptoms, but at this point it has been present for approximately 10 hours. I have ordered an echocardiogram with bubble study. The patient will be monitored on telemetry. 2. Hypertension. Again, this further demonstrates my concern for a stroke. Considering that this patient may have a CVA, allow permissive hypertension. At this point her most recent blood pressure in the emergency department is 147/ 99. I will give 2.5 mg of IV hydralazine for systolic blood pressure over 185 and we will continue to monitor this. 3. Past medical history of rheumatoid arthritis. The patient does not take any medications to treat her rheumatoid arthritis. We will continue. 4. Chronic pain. Continue home gabapentin, Zanaflex, and p.r.n. Tylenol. 5. FEN. The patient may have regular unrestricted diet. Electrolytes are within normal limits. No IV fluids at this time. 6. Code status. The patient is a full code. 7. DVT prophylaxis. The patient has DVT risk score of 1. I will order SCDs. TIME SPENT: Approximately 45 minutes was spent on this admission, approximately half this time was spent at the bedside evaluating the patient and discussing the plan of care. This case was reviewed with my attending Dr. Shanna Hayden and she agrees with this plan of care. HAYDEE BARBA [id number]/CPS #: [id number] RADHA
[2019-05-08 04:59] LABS: ABS Eosinophils 0.1 10^3/ul (0-0.6); ABS Lymphocytes 2.1 10^3/ul (1.0-4.8); ABS Monocytes 0.5 10^3/ul (0-0.8); ABS Neutrophils 2.3 10^3/ul (1.5-7.7); Eosinophil % 2.5 %; Hematocrit 34 % (35-47); Hemoglobin 11.6 g/dL (12.0-16.0); Lymphocyte % 41.4 %; Mean Corpuscular HGB Conc 35 g/dL (31-36); Mean Corpuscular Hemoglobin 33 pg (27-31); Mean Corpuscular Volume 96 fL (80-97); Mean Platelet Volume 8.6 fL (7.4-10.4); Platelet Count 111 10^3/uL (150-450); Red Cell Distribution Width 14 % (10-15)
[2019-05-08 05:09] LABS: BUN/Creatinine Ratio 34.6 (8-20); Calcium 9.2 mg/dL (8.6-10.3); EGFR African American 146.6 (>60); EGFR Non-African American 121.1 (>60); HDL Cholesterol 92.5 mg/dL; Potassium 3.9 mmol/L (3.5-5.0)
[2019-05-08 06:19] LABS: Folate 17.58 ng/mL (>3.99)
[2019-05-08] MEDS ORDERED: Fluticasone NASAL SPRAY 50MCG* 16 gm SPRAY BTL BOTH NARES SCH (09:00)
[2019-05-08] MEDS ORDERED: Aspirin EC TAB* 81 MG TAB.EC PO SCH (09:00)
[2019-05-08] MEDS: Clopidogrel TAB* 75 MG PO SCH (09:46)
[2019-05-08] MEDS: Gabapentin CAP(*) 300 MG PO SCH (09:47)
--- NOTE | 2019-05-08 10:30 | ECHO ---
*[facility]* [place] [address] Fax #: [phone] Transthoracic Echocardiogram Patient: Lorenzo Durham : 1960 Study Date: 05/08/2019 Age: 58 Gender: F HR: 63 bpm Height: 62 in /157.5 cm BSA: 1.51 m^2 Weight: 114.8 lb /52.2 kg BMI: 21 kg/m^2 *Groundman/Lineman: * Chelo Tidwell [facility] *Referring Physician: * O'Ashly Payton *Reading Physician: * German Pruitt MD Indications: TIA. History: Dizziness and vertigo. Mild ETOH. Conclusions Summary: - Left ventricle: The cavity size is normal. Wall thickness is borderline increased. Systolic function is normal. The estimated ejection fraction is 55-60%. - Atrial septum: A PFO is not demonstrated by color Doppler or agitated saline contrast. Negative bubble study images 37 and 38. - Mitral valve: There is mild regurgitation. - Tricuspid valve: There is mild regurgitation. Study data: Transthoracic echocardiogram. Procedure: Transthoracic echocardiography was performed. Image quality was good. A bubble study was performed. Complete 2D, spectral Doppler, and color flow Doppler. Location: Bedside. Patient status: Inpatient. Patient room number: 442-01. No prior study is available for comparison. Rhythm: Normal sinus rhythm. Findings Left ventricle: The cavity size is normal. Wall thickness is borderline increased. Systolic function is normal. The estimated ejection fraction is 55-60%. Wall motion is normal; there are no regional wall motion abnormalities. Left ventricular diastolic function parameters are normal. Right ventricle: The cavity size is normal. Wall thickness is normal. Systolic function is normal. Systolic pressure is within the normal range. Left atrium: The atrium is normal in size. Right atrium: The atrium is normal in size. Atrial septum: A PFO is not demonstrated by color Doppler or agitated saline contrast. Negative bubble study images 37 and 38. Mitral valve: The leaflets are mildly thickened. There is no evidence of stenosis. There is mild regurgitation. Aortic valve: The valve is trileaflet. The leaflets are mildly thickened. There is no evidence of stenosis. There is no significant regurgitation. Tricuspid valve: The leaflets are normal thickness. There is no evidence of stenosis. There is mild regurgitation. Pulmonic valve: The leaflets are normal thickness. There is no evidence of stenosis. There is trace regurgitation. Aorta: Aortic root: The aortic root is appears normal. Ascending aorta: The ascending aorta is appears normal. Aortic arch: The aortic arch is appears normal. Pericardium: There is no significant pericardial effusion. Pulmonary arteries: The main pulmonary artery is normal-sized. Systolic pressure is within the normal range. Systemic veins: Inferior vena cava: The vessel is normal in size. There is (>= 50%) respiratory change in the IVC dimension. Measurements Left ventricle Value Ref Aortic valve Value Ref LEONARD, LAX 4.1 cm 3.8 - 5.2 Gerri diam, ED 2.4 cm ----- ESD, LAX 2.8 cm 2.2 - 3.5 Peak v, S 1.2 m/sec ----- FS, LAX 32 % 27 - 45 VTI, S 26.0 cm ----- PW, ED, LAX (H) 1.0 cm 0.6 - 0.9 Mean grad, S 3.0 mm Hg ----- FS 32 % 27 - 45 Peak grad, S 5.0 mm Hg ----- PW, ED (H) 1.0 cm 0.6 - 0.9 LVOT/AV, VTI ratio 0.65 ----- PW/ID, ED 0.24 E', lat gerri, TDI (L) 7.5 cm/sec >=10.0 Mitral valve Value Ref E/e', lat gerri, 10 Peak E 0.79 m/sec ----- TDI Peak A 0.67 m/sec ----- E', med gerri, TDI (L) 6.1 cm/sec >=7.0 Decel time 187 ms --- -- E/e', med gerri, 13 Peak grad, D 2.5 mm Hg ----- TDI Peak E/A ratio 1.2 ----- E', avg, TDI 6.8 cm/sec E/e', avg, TDI 12 <=14 Pulmonic valve Value Ref Peak v, S 0.64 m/sec ----- LVOT Value Ref Peak grad, S 2.0 mm Hg ----- Peak monica, S 0.72 m/sec VTI, S 17.0 cm Tricuspid valve Value Ref Mean grad, S 1 mm Hg TR peak v 2.1 m/sec <=2.8 Peak RV-RA grad, S 18 mm Hg ----- Ventricular septum Value Ref IVS, ED (H) 1.1 cm 0.6 - 0.9 Ascending aorta Value Ref AAo AP diam, S 3.3 cm ----- Right ventricle Value Ref AW thickness, ED 0.4 cm 0.1 - 0.5 Aortic arch Value Ref LEONARD, LAX 2.9 cm Arch diam 2.2 cm ----- LEONARD minor ax, A4C (H) 3.6 cm 1.9 - 3.5 mid Decending aorta Value Ref Pressure, S 21 mm Hg Rick peak monica 0.67 m/sec ----- Left atrium Value Ref Pulmonary artery Value Ref AP dim, ES 3.00 cm 2.70 - Pressure, S 19.0 mm Hg ----- 3.80 ML dim, A4C 3.0 cm Inferior vena cava Value Ref SI dim, A4C 4.6 cm Diam 1.6 cm ----- Vol/bsa, ES, 1-p 18 ml/m^2 11 - 40 A4C Vol/bsa, ES, A/L 30 ml/m^2 16 - 34 Right atrium Value Ref SI dim, ES 5.0 cm 3.4 - 5.3 ML dim, ES, A4C 3.9 cm 2.6 - 4.4 SI dim, ES, A4C 5.0 cm 3.4 - 5.3 Estimated RAP 3 mm Hg Legend: (L) and (H) manuel values outside specified reference range. Prepared and electronically signed by German Pruitt MD 05/08/2019 10:30
--- NOTE | 2019-05-08 15:30 | CONS ---
SCONSULTATION REPORT: DATE OF CONSULT: 05/08/19 PATIENT OF: HAYDEE Barba and Dr. Colon. HISTORY OF PRESENT ILLNESS: This is 58-year-old right-handed woman who I am asked to evaluate for her vertigo. Of note about 8 months ago, she had a left ear infection and had vertigo that was not as severe as now, but it was similar in quality. She has had some hearing loss in that left ear and at times has tinnitus, but not recently. Since 8 months ago, she has had occasional vertigo , but milder than the first episode. Yesterday, she had sensation of severe room spinning even before she opened her eyes at 9 in the morning. There was no weakness, numbness, headache, or other symptoms. Her dizziness is so bad, she could not move her head and she was afraid to walk because she felt so off balance with dizziness. She was nauseous with this. There was no other symptoms. PAST MEDICAL HISTORY: She has a history of GERD, depression, anxiety, osteoarthritis. She has a history of rheumatoid arthritis, carpal tunnel surgery bilaterally, chronic back pain. PAST SURGICAL HISTORY: She is status post lumbar fusion, cervical fusion 15 years ago, appendectomy, hysterectomy, bilateral carpal tunnel surgeries, ganglion cyst removal of her finger. MEDICATIONS: Include at home: 1. Zanaflex 4 mg q.p.m. p.r.n. muscle spasm 2. Flonase nasal spray 2 sprays both nares daily. 3. Gabapentin 300 b.i.d. 4. Tylenol p.r.n. headaches. 5. Oxycodone 5 mg q.12 hours p.r.n. severe pain. ALLERGIES: She is allergic to SHELLFISH with severe abdominal pain. FAMILY HISTORY: The father of old age in 101. Mother at 89 due to kidney failure with a history of hypertension and [place]. SOCIAL HISTORY: She is retired at this point and smoked infrequently as a teenager. She drinks approximately 6 alcoholic beverages per week. REVIEW OF SYSTEMS: Negative for all 14 spheres other than the HPI. PHYSICAL EXAM: Temperature 98.2, pulse 75, respiration 20, blood pressure 109/ 61. She is alert and oriented with normal speech and comprehension. Cranial nerves II through XII are intact. There was no nystagmus. Disc was sharp. Motor exam revealed normal tone, strength, coordination, and gait. Romberg was negative. [id number]-or-[id number] was intact. Sensation intact to light touch other than to touch on her right leg mostly the anterior neff area. Reflexes were 1 and equal, downgoing toes. Chest: Clear. Cardiovascular: Regular rate and rhythm. Abdomen is soft with positive bowel sounds. DIAGNOSTIC STUDIES/LAB DATA: Her CT scan was normal as was her CTA. Her CTA was done and we could not get an MRI scan to make sure that this is not a cerebellar or brainstem stroke. The hospitalist found some numbness on the right side and this was of concern with a vertigo, but the patient did not complain of numbness at all. So, the CTA was negative. CT scan is negative. Transthoracic echo showed no source of clot in the head and negative bubble study. CAT scan was normal as discussed. White count 5.0, hematocrit 34, platelets 111. INR and PTT were normal. CMP was normal. Normal B12, folate, thyroid. LDL was 94. UA was negative. ASSESSMENT AND PLAN: Ms. Durham had acute onset of severe vertigo, this most likely was secondary to a peripheral problem given that is so much worse with movement of her head and that she has had similar, but milder episodes of vertigo associated with following a prior ear infection. I think it is unlikely that the numbness was significant since it was found on exam and the patient had no awareness until she was tested yesterday. There is some numbness in her right leg today, but just on the front of her leg and I wonder whether it relates to her prior low back surgeries. The reason the MRI scan could not be done was because of the new protocol saying that if you do not know what hardware is placed during surgery, you cannot get an MRI scan even if she has had MRI scan since. We double checking into that and we will be glad to get an MRI scan if allowed. Given the uncertainty, she is going to be on a baby aspirin, but I would not treat her LDL of 93. We do not think that this was a stroke and in the absence of stroke or transient ischemic attack, I would not treat that cholesterol. She was able to get an MRI scan and I will be glad to see her back following that as an outpatient. She should follow up with her ENT doctor. It would be reasonable to consider PT so that we can be taught maneuvers to get rid of the ear if this happens again. I think that this is more likely a neuronitis rather than otolith, but since her symptoms are so severe and like to recur, I would make sure we have covered all the bases. Thank you for sharing her case. [id number]/[facility] #: [id number] RADHA
[2019-05-08 16:24] VITALS: BP 119/70
--- NOTE | 2019-05-08 20:20 | DS ---
CC: Dr. Haney * DISCHARGE SUMMARY: DATE OF ADMISSION: DATE OF DISCHARGE: 05/08/19 PRIMARY CARE PROVIDER: Dr. Colon. ATTENDING PHYSICIAN WHILE IN THE HOSPITAL: Dr. Jeb Zacarias * (dictated by HAYDEE Barba). CONSULTING NEUROLOGIST: Dr. Haney. PRIMARY DIAGNOSIS: Dizziness, likely related to vertigo. SECONDARY DIAGNOSES: 1. Gastroesophageal reflux disease. 2. Depression. 3. Anxiety. 4. Osteoarthritis. 5. Rheumatoid arthritis. 6. Bilateral carpal tunnel. 7. Chronic back pain. STUDIES WHILE IN THE HOSPITAL: Transthoracic echocardiogram on 05/08/19, systolic function is normal, estimated EF is 55% to 60%. There is a negative bubble study. Left ventricular diastolic dysfunction, primaries are normal. Head and neck CT angiogram on 05/07/19, no significant intracranial or vascular abnormality in the head or in the neck. Brain CT on 05/07/19, no acute intracranial abnormality. HISTORY OF PRESENT ILLNESS/HOSPITAL COURSE: Lorenzo Durham is a 58-year-old female, who presented to the emergency department due to severe dizziness with sensation of room spinning and gait disturbance. For further details, please see the admitting history and physical written by myself, HAYDEE Barba. Given that there were neurologic findings of right-sided numbness, there was initial concern for CVA and the patient was admitted to have an MRI of the brain. Unfortunately, due to new radiology protocol, the patient is unable to get an MRI at this time as she has a known hardware on her cervical and lumbar spine fusions and the radiology department must know which medical equipment company supplied them. Multiple attempts were made to obtain these records from [facility] and the patient does not know the name of the surgeon who performed these procedures. Unfortunately this information was not found during this hospitalization. Given the new radiology protocol, even though the patient has had MRI in the past at this facility, it will not be allowed until this information is obtained, unfortunately. Dr. Haney evaluated the patient in consultation and found that her symptoms are likely due to benign paroxysmal positional vertigo; however, given that MRI was not performed it is difficult to completely rule out a CVA; however, if there were one, the residual symptoms would be quite mild. The patient symptomatically resolved during her hospital stay and no longer had dizziness or gait disturbance on the day of discharge. She had no complaints on the day of discharge and denied visual changes, denied chest pain, but endorsed that she was still smelling gas at times. The patient denies nausea. PHYSICAL EXAMINATION ON THE DAY OF DISCHARGE: An female, who appears younger than stated age, lying in the hospital bed, appearing comfortable, in no acute distress. Eyes: PERRLA. Sclerae anicteric. ENT: Mucous membranes are moist. Neck: Supple without JVD. Lungs: Clear to auscultation throughout. Cardio: Regular rate and rhythm without murmurs, rubs, or gallops. Abdomen: Soft, nontender, nondistended. Extremities: No clubbing, cyanosis , or edema. Neuro: The patient is alert and oriented x3. Diminished sensation in the right upper extremity, right lower extremity, and right aspect of face. Face is symmetrical at its midline. Speech is clear. Skin: Warm, dry, and intact. DISCHARGE PLAN: Diet: Regular, unrestricted diet. Activity: The patient may return to regular activity as tolerated. If the patient is able to receive an MRI at a different facility, that is much encouraged. Unfortunately, this cannot happen during this hospital stay. She was encouraged to start finding documentation regarding her previous cervical and lumbar surgeries so that an MRI could be performed here. It would be of great benefit for the patient to have an MRI of her brain, and Dr. Haney will be happy to follow up with her as an outpatient. The patient was provided contact information for vestibular physical therapists to assist with the vertiginous symptoms. A trial of meclizine was not started as by the time I evaluated the patient at admission, her symptoms were improving. Given that MRI could not be confirmed, her current LDL was acceptable, but baby aspirin has been recommended and I advised the patient to stop taking naproxen or other NSAIDs. She was advised to return to the hospital for sudden numbness, tingling , or weakness on one side, sudden facial drooping, sudden changes in speech, or sudden visual changes. She is additionally advised to follow up with her ENT by Dr. Haney. DISCHARGE MEDICATIONS: New medications: Aspirin 81 mg p.o. daily. Continued home medications: 1. Zanaflex 4 mg p.o. q.p.m. p.r.n. muscle spasms. 2. Flonase nasal spray 2 sprays both nares daily. 3. Gabapentin 300 mg p.o. b.i.d. 4. Tylenol 500 mg p.o. b.i.d. p.r.n. pain. 5. Oxycodone 5 mg p.o. q.12 hours p.r.n. severe pain. CONDITION ON DISCHARGE: Stable. DISPOSITION: Home. TIME SPENT: Approximately 35 minutes were spent on this discharge, approximately half of this time was spent at the bedside evaluating the patient and discussing the plan of care. HAYDEE BARBA [id number]/[facility] #: [id number] RADHA
== END 2019-05-08 16:21 | disposition home or self-care (01) ==
LOC: ED 16:07 → MEDTELE 19:43
PROVIDERS: ADMIT Internal Medicine; ATTEND Internal Medicine
DX: R42 Dizziness and giddiness (principal); K21.9 Gastro-esophageal reflux disease without esophagitis; F32.9 Major depressive disorder, single episode, unspecified; F41.9 Anxiety disorder, unspecified; M19.90 Unspecified osteoarthritis, unspecified site; M06.9 Rheumatoid arthritis, unspecified; G56.03 Carpal tunnel syndrome, bilateral upper limbs; G89.29 Other chronic pain; M54.9 Dorsalgia, unspecified; Z79.899 Other long term (current) drug therapy; H91.92 Unspecified hearing loss, left ear
CPT/HCPCS: 36415; 70450; 70496; 70498; 71046; 80048; 80061; 80076; 81003; 82607; 82746; 83036; 83690; 84443; 84484; 85025; 85610; 85730; 93005; 93306; 99284; A9270-GY; G0378; Q9967

== ENCOUNTER 2019-06-16 10:15 | Day surgery (SDC) | payer OTHER ==
[~2019-06-16 10:15] MED LIST changes: +Dexamethasone IV* 4 MG/ML 1 ML (4 MG) IV SLOW PU ONE; -Lidocaine 1% INJ* 10 MG/ML 30 ML SDV ONE
[2019-06-16] MEDS ORDERED: Dexamethasone IV* 4 MG/ML 1 ML (4 MG) ONE (10:26)
[2019-06-16] MEDS ORDERED: Lidocaine 1% INJ* 10 MG/ML 30 ML SDV ONE (10:27)
[2019-06-16] MEDS ORDERED: Propofol* 10 MG/ML 20 ML BTL ONE (11:21)
[2019-06-16] MEDS ORDERED: fentaNYL* 50 MCG/ML 2 ML VIAL (100 MCG VIAL) ONE (11:21)
[2019-06-16] MEDS ORDERED: Ketorolac INJ* 30 MG/ML 1 ML VIAL ONE (11:21)
[2019-06-16] MEDS ORDERED: Midazolam* 1 MG/ML 2 ML VIAL (2 MG) ONE ×2 (11:21→11:26)
[2019-06-16] MEDS ORDERED: Ondansetron INJ* 2 MG/ML VIAL ONE (11:21)
[2019-06-16] MEDS ORDERED: Ondansetron INJ* 2 MG/ML VIAL IV PRN (11:40)
[2019-06-16] MEDS ORDERED: Naloxone* 0.4 MG/ML 1 ML VIAL IV PRN (11:40)
[2019-06-16 12:09] VITALS: BP 137/87
--- NOTE | 2019-06-16 21:46 | OP ---
DATE OF OPERATION: 06/16/19 [facility] DATE OF : 60 SURGEON: Yennifer Herrera MD INFRASTRUCTURE DEVELOPER: HAYDEE Sanchez ANESTHESIA: Local MAC. PRE-OP DIAGNOSIS: Recurrent ganglion cyst to the left long finger and left carpal tunnel syndrome. POST-OP DIAGNOSIS: Recurrent ganglion cyst to the left long finger and left carpal tunnel syndrome. OPERATIVE PROCEDURE: Ganglion cyst excision from the left middle finger and carpal tunnel release on the left side. ESTIMATED BLOOD LOSS: Zero. TOURNIQUET TIME: About 20 minutes. INDICATION FOR PROCEDURE: Lorenzo is a 58-year-old female who had a small mass removed from the dorsal aspect of her left middle finger. She has a recurrent ganglion at the distal aspect of the incision. She also has left carpal tunnel syndrome and presents for left carpal tunnel release and ganglion cyst excision from the left middle finger. DESCRIPTION OF PROCEDURE: The patient was brought to the operating room, was given a sedation anesthetic and a local infiltration of 10 cc of 1% plain lidocaine in the palm of her left hand and a digital block with 10 cc of 1% plain lidocaine to the left middle finger. The skin of her left upper extremity was prepped and draped in the usual sterile fashion. The hand and forearm were exsanguinated and the tourniquet elevated to 250 mmHg. A longitudinal incision was made in the palm in line with the ring finger and we dissected through the subcutaneous tissue down to the transverse carpal ligament. The ligament was divided sharply with the knife and then more proximally with the scissors. The nerve was dissected free from the surrounding tissue and there is an area of moderate compression at the mid portion of the ligament. The wound was irrigated and the skin edges were reapproximated with 4-0 nylon suture. Next, the scar on the dorsal aspect of the middle finger was incised and extended distally and then perpendicular at the DIP joint. The skin flaps were raised off over the ganglion cyst and it was removed and sent for pathology. The edge of the extensor tendon was incised longitudinally and the underlying osteophyte removed with a rongeur. The wound was irrigated and the skin edges were reapproximated with 4-0 nylon suture. The wounds were dressed with Xeroform, 4x4, Webril, and an Ford wrap, and Coban. The patient tolerated the procedure well and was brought to the recovery room in good condition. [id number]/[facility] #: [id number] RADHA
== END 2019-06-16 12:33 | disposition home or self-care (01) ==
LOC: OREAST 10:15
PROVIDERS: ATTEND Orthopaedic Surgery
DX: G56.02 Carpal tunnel syndrome, left upper limb (principal); M67.442 Ganglion, left hand; K21.9 Gastro-esophageal reflux disease without esophagitis; M79.7 Fibromyalgia; R42 Dizziness and giddiness; F41.9 Anxiety disorder, unspecified; I10 Essential (primary) hypertension
CPT/HCPCS: 88304; J1100; J1885; J2250; J2405; J2704; J3010